=== PATIENT | female | born 1965 | race Caucasian/White ===

== ENCOUNTER 2020-11-24 15:00 | Outpatient (RCR) | payer BC, SELFPAY ==
--- NOTE | 2020-08-09 21:59 | HO.TMSDAILY2 ---
TMS Daily Progress Note Daily TMS Progress Note Date of Service: 08/09/20 Verification: I have reviewed the TMS Finishing Room Operator Note and agree with the contents. The patient remains a candidate to continue TMS treatment per protocol.
--- NOTE | 2020-09-12 07:51 | W.PM.TMSCONS ---
History of Present Illness General Data Date of Service: 08/22/20 Reason for consult: TMS EVAL Requesting provider: Trudy Mccauley History of Present Illness the patient is a 55-year-old female referred by Dr. 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 The patient reports ongoing depressed mood hopelessness helplessness despondency patient reports feeling down blue little interest in things with poor sleep prominent hopelessness helplessness and thoughts that she would be better off . She also suffers from severe constant anxiety and worry. She has had a very difficult time since the pandemic feeling isolated unable to cope difficulty with online engagement. Patient does see Ekle Vega at [facility] for psychotherapy. The patient has had a particularly difficult time since the of her son a helicopter crash in January of 2015 her current medications include citalopram 40 mg daily lamotrigine 200 mg bid BuSpar 25 mg bid Abilify 5mg a day the patient has felt increasingly despondent with thoughts that she would be better off denies plan or intent stating she can maintain her safety and would reach out if feeling that she could not Past Psychiatric History/Medication Trials: there is a history of partial hospital admissions and past p history of multiple trials including Paxil Effexor sertraline at therapeutic doses has not responded to antidepressantssychiatric hospitalizations starting in 1995 there is a history of overdose attempts and a history of overusing clonazepam.Pts has had serious suicide attempt requiring hospitatalization. Past trials of risperadol for augmentation rexulti 1 mg daily PMF Narrative: migraines carpal tunnel Family History: mother depression Social History: [place] children son age 31 masters degree [employer] education lives with her spouse Substance History: ? past overuse of klonapin Trauma History: of son Meds/Allergies Meds Narrative: see hpi Allergies Allergies Allergy/AdvReac Type Severity Reaction Status Date / Time No Known Allergies Allergy Unverified 04/07/20 16:33 [No Known Allergies*] Mental Status Exam Mental Status Exam Level of Consciousness: Awake Patient Behavior: Appropriate Mood Description: Calm, Depressed, Sad and Apprehensive Affect Description: Constricted, Depressed and Anxious Patient Cognition Impaired: No Ability to Follow Directions: Good Memory Description: Intact Hallucinations: None Delusions: Not Present Thought Content: positive for Obsessional Thoughts, positive for Goal Oriented, positive for Suicidal Ideation (passive si) and negative for Homicidal Ideation Depressive Symptoms: Increased Anxiety, Insomnia, Diff. Making Decisions, Feelings of Worthlessness, Feelings of Guilt, Thoughts of /Suicide and Difficulty Concentrating Judgement: Fair Assessment & Plan Assessment & Plan (1) Depression, major, severe recurrence: Status: Acute Code(s): F33.2 - Major depressive disorder, recurrent severe without psychotic features Recommendations: the patient is in the midst of a severe incapacitating depression case reviewed extensively with her outpatient psychiatrist Dr. Mccauley who recommends TMS patient has no medical contraindications no clear reported manic symptoms is a strong candidate for TMS treatment Greater than 50% of the session was spent on counseling and/or coordination of care
--- NOTE | 2020-09-21 20:57 | P.PNPS_ITS ---
TMS Daily Progress Note Daily TMS Progress Note Date of Service: 09/21/20 Week #: 1 Treatment #(08-20): 1 PHQ-9 Pre-Treatment (08-17): 21 PHQ-9 Most Recent (08-17): 21 Reviewed: TMS Tech Note Reviewed Verification: I have reviewed the TMS Exterior Door Installer Note and agree with the contents. The patient remains a candidate to continue TMS treatment per pro tocol.
--- NOTE | 2020-09-22 23:11 | P.PNPS_ITS ---
TMS Daily Progress Note Daily TMS Progress Note Date of Service: 09/22/20 Week #: 1 Treatment #(08-20): 2 PHQ-9 Pre-Treatment (08-17): 21 PHQ-9 Most Recent (08-17): 21 Reviewed: TMS Tech Note Reviewed Verification: I have reviewed the TMS Keymodule Assembly Machine Tender Note and agree with the contents. The patient remains a candidate to continue TMS treatment per pro tocol.
--- NOTE | 2020-09-23 22:30 | P.PNPS_ITS ---
TMS Daily Progress Note Daily TMS Progress Note Date of Service: 09/23/20 Week #: 1 Treatment #(08-20): 3 PHQ-9 Pre-Treatment (08-17): 21 PHQ-9 Most Recent (08-17): 21 Reviewed: TMS Tech Note Reviewed Verification: I have reviewed the TMS Supervisor Furnace Room Note and agree with the contents. The patient remains a candidate to continue TMS treatment per pro tocol.
--- NOTE | 2020-09-26 21:22 | HO.TMSDAILY2 ---
TMS Daily Progress Note Daily TMS Progress Note Date of Service: 09/26/20 Week #: 1 Treatment #(08-20): 4 PHQ-9 Pre-Treatment (08-17): 21 PHQ-9 Most Recent (08-17): 21 Reviewed: TMS Tech Note Reviewed Verification: I have reviewed the TMS Chemical Laboratory Technician Note and agree with the contents. The patient remains a candidate to continue TMS treatment per protocol.
--- NOTE | 2020-09-27 22:05 | HO.TMSDAILY2 ---
TMS Daily Progress Note Daily TMS Progress Note Date of Service: 09/27/20 Week #: 1 Treatment #(08-20): 5 PHQ-9 Pre-Treatment (08-17): 21 PHQ-9 Most Recent (08-17): 21 Reviewed: TMS Tech Note Reviewed Verification: I have reviewed the TMS Architectural Project Manager Note and agree with the contents. The patient remains a candidate to continue TMS treatment per protocol.
--- NOTE | 2020-09-28 22:29 | HO.TMSDAILY2 ---
TMS Daily Progress Note Daily TMS Progress Note Date of Service: 09/28/20 Week #: 2 Treatment #(08-20): 6 PHQ-9 Pre-Treatment (08-17): 21 PHQ-9 Most Recent (08-17): 21 Reviewed: TMS Tech Note Reviewed Verification: I have reviewed the TMS Skiver Machine Operator Note and agree with the contents. The patient remains a candidate to continue TMS treatment per protocol.
--- NOTE | 2020-09-29 22:31 | P.PNPS_ITS ---
TMS Daily Progress Note Daily TMS Progress Note Date of Service: 09/29/20 Week #: 2 Treatment #(08-20): 7 PHQ-9 Pre-Treatment (08-17): 21 PHQ-9 Most Recent (08-17): 21 Reviewed: TMS Tech Note Reviewed Verification: I have reviewed the TMS Safety Attendant Note and agree with the contents. The patient remains a candidate to continue TMS treatment per pro tocol.
--- NOTE | 2020-09-30 23:10 | HO.TMSDAILY2 ---
TMS Daily Progress Note Daily TMS Progress Note Date of Service: 09/30/20 Week #: 2 Treatment #(08-20): 8 PHQ-9 Pre-Treatment (08-17): 21 PHQ-9 Most Recent (08-17): 21 Reviewed: TMS Tech Note Reviewed Verification: I have reviewed the TMS Teacher Public Health Note and agree with the contents. The patient remains a candidate to continue TMS treatment per protocol.
--- NOTE | 2020-10-03 23:00 | HO.TMSDAILY2 ---
TMS Daily Progress Note Daily TMS Progress Note Date of Service: 10/03/20 Week #: 2 Treatment #(08-20): 8 PHQ-9 Pre-Treatment (08-17): 21 PHQ-9 Most Recent (08-17): 21 Reviewed: TMS Tech Note Reviewed Verification: I have reviewed the TMS Field Training Agent Note and agree with the contents. The patient remains a candidate to continue TMS treatment per protocol.
--- NOTE | 2020-10-04 23:13 | P.PNPS_ITS ---
TMS Daily Progress Note Daily TMS Progress Note Date of Service: 10/04/20 Week #: 2 Treatment #(08-20): 10 PHQ-9 Pre-Treatment (08-17): 21 PHQ-9 Most Recent (08-17): 21 Reviewed: TMS Tech Note Reviewed Verification: I have reviewed the TMS Stitch Bonding Machine Operator Note and agree with the contents. The patient remains a candidate to continue TMS treatment per pr otocol.
--- NOTE | 2020-10-05 22:44 | HO.TMSDAILY2 ---
TMS Daily Progress Note Daily TMS Progress Note Date of Service: 10/05/20 Week #: 3 Treatment #(08-20): 11 PHQ-9 Pre-Treatment (08-17): 21 PHQ-9 Most Recent (08-17): 21 Reviewed: TMS Tech Note Reviewed Verification: I have reviewed the TMS Tool And Die Designer Note and agree with the contents. The patient remains a candidate to continue TMS treatment per protocol.
--- NOTE | 2020-10-07 23:44 | HO.TMSDAILY2 ---
TMS Daily Progress Note Daily TMS Progress Note Date of Service: 10/07/20 Week #: 3 Treatment #(08-20): 12 PHQ-9 Pre-Treatment (08-17): 21 PHQ-9 Most Recent (08-17): 21 Reviewed: TMS Tech Note Reviewed Verification: I have reviewed the TMS Manager Speech Note and agree with the contents. The patient remains a candidate to continue TMS treatment per protocol.
--- NOTE | 2020-10-10 22:38 | P.PNPS_ITS ---
TMS Daily Progress Note Daily TMS Progress Note Date of Service: 10/10/20 Week #: 3 Treatment #(08-20): 13 PHQ-9 Pre-Treatment (08-17): 21 PHQ-9 Most Recent (08-17): 21 Reviewed: TMS Tech Note Reviewed Verification: I have reviewed the TMS Safe And Vault Service Mechanic Note and agree with the contents. The patient remains a candidate to continue TMS treatment per pr otocol.
--- NOTE | 2020-10-11 22:32 | HO.TMSDAILY2 ---
TMS Daily Progress Note Daily TMS Progress Note Date of Service: 10/11/20 Week #: 3 Treatment #(08-20): 14 PHQ-9 Pre-Treatment (08-17): 21 PHQ-9 Most Recent (08-17): 21 Reviewed: TMS Tech Note Reviewed Verification: I have reviewed the TMS Staff Pharmacist Note and agree with the contents. The patient remains a candidate to continue TMS treatment per protocol.
--- NOTE | 2020-10-13 22:14 | HO.TMSDAILY2 ---
TMS Daily Progress Note Daily TMS Progress Note Date of Service: 10/13/20 Week #: 3 Treatment #(08-20): 15 PHQ-9 Pre-Treatment (08-17): 21 PHQ-9 Most Recent (08-17): 21 Reviewed: TMS Tech Note Reviewed Verification: I have reviewed the TMS Warehouse Hand Note and agree with the contents. The patient remains a candidate to continue TMS treatment per protocol.
--- NOTE | 2020-10-13 22:15 | HO.TMSDAILY2 ---
TMS Daily Progress Note Daily TMS Progress Note Date of Service: 10/13/20 Week #: 4 Treatment #(08-20): 16 PHQ-9 Pre-Treatment (08-17): 21 PHQ-9 Most Recent (08-17): 21 Reviewed: TMS Tech Note Reviewed Verification: I have reviewed the TMS Service Advocate Contact Note and agree with the contents. The patient remains a candidate to continue TMS treatment per protocol.
--- NOTE | 2020-10-14 21:59 | P.PNPS_ITS ---
TMS Daily Progress Note Daily TMS Progress Note Date of Service: 10/14/20 Week #: 4 Treatment #(08-20): 17 PHQ-9 Pre-Treatment (08-17): 21 PHQ-9 Most Recent (08-17): 21 Reviewed: TMS Tech Note Reviewed Verification: I have reviewed the TMS Marine Equipment Preservation Inspector Note and agree with the contents. The patient remains a candidate to continue TMS treatment per pr otocol.
--- NOTE | 2020-10-17 22:45 | HO.TMSDAILY2 ---
TMS Daily Progress Note Daily TMS Progress Note Date of Service: 10/17/20 Week #: 4 Treatment #(08-20): 18 PHQ-9 Pre-Treatment (08-17): 21 PHQ-9 Most Recent (08-17): 21 Reviewed: TMS Tech Note Reviewed Verification: I have reviewed the TMS Mines Safety Engineer Note and agree with the contents. The patient remains a candidate to continue TMS treatment per protocol.
--- NOTE | 2020-10-20 21:19 | P.PNPS_ITS ---
TMS Daily Progress Note Daily TMS Progress Note Date of Service: 10/20/20 Week #: 4 Treatment #(08-20): 19 PHQ-9 Pre-Treatment (08-17): 21 PHQ-9 Most Recent (08-17): 21 Reviewed: TMS Tech Note Reviewed Verification: I have reviewed the TMS Risk Engineer Note and agree with the contents. The patient remains a candidate to continue TMS treatment per pr otocol.
--- NOTE | 2020-10-24 21:14 | HO.TMSDAILY2 ---
TMS Daily Progress Note Daily TMS Progress Note Date of Service: 10/24/20 Week #: 4 Treatment #(08-20): 20 PHQ-9 Pre-Treatment (08-17): 21 PHQ-9 Most Recent (08-17): 21 Reviewed: TMS Tech Note Reviewed Verification: I have reviewed the TMS Lead Care Manager Note and agree with the contents. The patient remains a candidate to continue TMS treatment per protocol.
--- NOTE | 2020-10-26 22:35 | HO.TMSDAILY2 ---
TMS Daily Progress Note Daily TMS Progress Note Date of Service: 10/26/20 Week #: 5 Treatment #(08-20): 21 PHQ-9 Pre-Treatment (08-17): 21 PHQ-9 Most Recent (08-17): 21 Reviewed: TMS Tech Note Reviewed Verification: I have reviewed the TMS Journeyman Molder Note and agree with the contents. The patient remains a candidate to continue TMS treatment per protocol.
--- NOTE | 2020-10-27 22:59 | P.PNPS_ITS ---
TMS Daily Progress Note Daily TMS Progress Note Date of Service: 10/27/20 Week #: 5 Treatment #(08-20): 22 PHQ-9 Pre-Treatment (08-17): 21 PHQ-9 Most Recent (08-17): 21 Reviewed: TMS Tech Note Reviewed Verification: I have reviewed the TMS Electrocardiogram Technician Note and agree with the contents. The patient remains a candidate to continue TMS treatment per pr otocol.
--- NOTE | 2020-10-28 10:05 | HO.TMSDAILY2 ---
TMS Daily Progress Note Daily TMS Progress Note Date of Service: 10/28/20 Week #: 5 Treatment #(08-20): 23 PHQ-9 Pre-Treatment (08-17): 21 PHQ-9 Most Recent (08-17): 21 Reviewed: TMS Tech Note Reviewed Verification: I have reviewed the TMS Director Of Ancillary Services Note and agree with the contents. The patient remains a candidate to continue TMS treatment per protocol.
--- NOTE | 2020-10-31 21:49 | P.PNPS_ITS ---
TMS Daily Progress Note Daily TMS Progress Note Date of Service: 10/31/20 Week #: 5 Treatment #(08-20): 24 PHQ-9 Pre-Treatment (08-17): 21 PHQ-9 Most Recent (08-17): 21 Reviewed: TMS Tech Note Reviewed Verification: I have reviewed the TMS Shipping Inspector Note and agree with the contents. The patient remains a candidate to continue TMS treatment per pr otocol.
--- NOTE | 2020-11-01 22:02 | HO.TMSDAILY2 ---
TMS Daily Progress Note Daily TMS Progress Note Date of Service: 11/01/20 Week #: 5 Treatment #(08-20): 25 PHQ-9 Pre-Treatment (08-17): 21 PHQ-9 Most Recent (08-17): 21 Reviewed: TMS Tech Note Reviewed Verification: I have reviewed the TMS Commodity Supervisor Note and agree with the contents. The patient remains a candidate to continue TMS treatment per protocol.
--- NOTE | 2020-11-02 22:48 | HO.TMSDAILY2 ---
TMS Daily Progress Note Daily TMS Progress Note Date of Service: 11/02/20 Week #: 6 Treatment #(08-20): 26 PHQ-9 Pre-Treatment (08-17): 21 PHQ-9 Most Recent (08-17): 21 Reviewed: TMS Tech Note Reviewed Verification: I have reviewed the TMS Furniture Assembler And Installer Note and agree with the contents. The patient remains a candidate to continue TMS treatment per protocol.
--- NOTE | 2020-11-03 21:51 | P.PNPS_ITS ---
TMS Daily Progress Note Daily TMS Progress Note Date of Service: 11/03/20 Week #: 6 Treatment #(08-20): 27 PHQ-9 Pre-Treatment (08-17): 21 PHQ-9 Most Recent (08-17): 21 Reviewed: TMS Tech Note Reviewed Verification: I have reviewed the TMS Sea Foam Kiss Maker Note and agree with the contents. The patient remains a candidate to continue TMS treatment per pr otocol.
--- NOTE | 2020-11-04 22:05 | HO.TMSDAILY2 ---
TMS Daily Progress Note Daily TMS Progress Note Date of Service: 11/04/20 Week #: 6 Treatment #(08-20): 28 PHQ-9 Pre-Treatment (08-17): 21 PHQ-9 Most Recent (08-17): 21 Reviewed: TMS Tech Note Reviewed Verification: I have reviewed the TMS Is Project Manager Note and agree with the contents. The patient remains a candidate to continue TMS treatment per protocol.
--- NOTE | 2020-11-08 15:33 | HO.TMSDAILY2 ---
TMS Daily Progress Note Daily TMS Progress Note Date of Service: 11/08/20 Week #: 6 Treatment #(08-20): 29 PHQ-9 Pre-Treatment (08-17): 21 PHQ-9 Most Recent (08-17): 7 Reviewed: TMS Tech Note Reviewed Verification: I have reviewed the TMS Electronic Engineering Draftsperson Note and agree with the contents. The patient remains a candidate to continue TMS treatment per protocol.
--- NOTE | 2020-11-09 23:02 | HO.TMSDAILY2 ---
TMS Daily Progress Note Daily TMS Progress Note Date of Service: 11/09/20 Week #: 6 Treatment #(08-20): 30 PHQ-9 Pre-Treatment (08-17): 21 PHQ-9 Most Recent (08-17): 7 Reviewed: TMS Tech Note Reviewed Verification: I have reviewed the TMS Mortgage Loan Coordinator Note and agree with the contents. The patient remains a candidate to continue TMS treatment per protocol.
--- NOTE | 2020-11-10 23:11 | HO.TMSDAILY2 ---
TMS Daily Progress Note Daily TMS Progress Note Date of Service: 11/10/20 Week #: 7 Treatment #(08-20): 31 PHQ-9 Pre-Treatment (08-17): 21 PHQ-9 Most Recent (08-17): 7 Reviewed: TMS Tech Note Reviewed Verification: I have reviewed the TMS Electric Organ Assembler And Checker Note and agree with the contents. The patient remains a candidate to continue TMS treatment per protocol.
--- NOTE | 2020-11-17 20:18 | HO.TMSDAILY2 ---
TMS Daily Progress Note Daily TMS Progress Note Date of Service: 11/17/20 Week #: 7 Treatment #(08-20): 33 PHQ-9 Pre-Treatment (08-17): 21 PHQ-9 Most Recent (08-17): 7 Reviewed: TMS Tech Note Reviewed Verification: I have reviewed the TMS Liquor Grinding Mill Operator Note and agree with the contents. The patient remains a candidate to continue TMS treatment per protocol.
--- NOTE | 2020-11-22 22:44 | HO.TMSDAILY2 ---
TMS Daily Progress Note Daily TMS Progress Note Date of Service: 11/22/20 Week #: 8 Treatment #(08-20): 34 PHQ-9 Pre-Treatment (08-17): 21 PHQ-9 Most Recent (08-17): 7 Reviewed: TMS Tech Note Reviewed Verification: I have reviewed the TMS Java Development Manager Note and agree with the contents. The patient remains a candidate to continue TMS treatment per protocol.
--- NOTE | 2020-11-23 21:20 | HO.TMSDAILY2 ---
TMS Daily Progress Note Daily TMS Progress Note Date of Service: 11/23/20 Week #: 8 Treatment #(08-20): 35 PHQ-9 Pre-Treatment (08-17): 21 PHQ-9 Most Recent (08-17): 7 Reviewed: TMS Tech Note Reviewed Verification: I have reviewed the TMS Laundry Operator Wash Room Note and agree with the contents. The patient remains a candidate to continue TMS treatment per protocol.
--- NOTE | 2020-11-24 21:29 | P.PNPS_ITS ---
TMS Daily Progress Note Daily TMS Progress Note Date of Service: 11/24/20 Week #: 8 Treatment #(08-20): 36 PHQ-9 Pre-Treatment (08-17): 21 PHQ-9 Most Recent (08-17): 7 Reviewed: TMS Tech Note Reviewed Verification: I have reviewed the TMS College Archivist Note and agree with the contents. The patient remains a candidate to continue TMS treatment per pro tocol.
== END 2020-11-24 16:00 | disposition home or self-care (01) ==
LOC: HO.PTMS 15:00
PROVIDERS: Visit Provider Psychiatry & Neurology Psychiatry
DX: F33.2 Major depressive disorder, recurrent severe without psychotic features (principal)
CPT/HCPCS: 90867; 90868

== ENCOUNTER 2020-12-23 06:12 | Outpatient (REF) | payer BC, SELFPAY ==
[2020-12-23 07:22] LABS: MANUAL DIFF FLAG NO
[2020-12-23 07:30] LABS: Basophils Absolute Auto 0.1 X10*3/uL (0.0-0.2); Basophils Percent Auto 0.7 % (0-2); Eosinophils Absolute Auto 0.2 X10*3/uL (0.0-0.4); Eosinophils Percent Auto 3.3 % (0-4); Hematocrit 37.5 % (37-47); Hemoglobin 12.2 g/dl (12.0-16.0); Imm Gran Abs Auto 0.02 X10*3/uL (0.00-0.03); Imm Gran Pct Auto 0.3 % (0.0-0.4); Lymphocytes Absolute Auto 2.7 X10*3/uL (1.2-4.9); Lymphocytes Percent Auto 37.3 % (20-40); Mean Corpuscular HGB Conc 32.5 g/dl (31.0-35.0); Mean Corpuscular Hemoglobin 29.5 pg (27.0-33.0); Mean Corpuscular Volume 90.6 fL (80-98); Mean Platelet Volume 9.9 fL (9.4-12.3); Monocytes Absolute Auto 0.5 X10*3/uL (0.1-1.2); Monocytes Percent Auto 7.5 % (2-11); Neutrophils Absolute Auto 3.7 X10*3/uL (2.0-8.3); Neutrophils Percent Auto 50.9 % (45-73); Platelet Count 263 X10*3/uL (160-400); Red Blood Count 4.14 X10*6/uL (4.20-5.50); Red Cell Distribution Width 11.9 % (11.0-16.0); White Blood Count 7.2 X10*3/uL (4.8-10.8)
[2020-12-23 07:43] LABS: Alanine Aminotransferase 14 U/L (0-31); Albumin Level 4.1 g/dL (3.5-5.0); Alkaline Phosphatase 66 U/L (39-117); Anion Gap 11 (12-20); Aspartate Amino Transferase 15 U/L (5-31); Bilirubin Total 0.8 mg/dL (0.0-1.0); Blood Urea Nitrogen 18 mg/dL (9-16); Calcium 9.1 mg/dL (8.4-10.2); Carbon Dioxide 28 mmol/L (22-29); Chloride 103 mmol/L (96-108); Cholesterol 183 mg/dL; Estimated Glomerular Filt Rate > 60; Glucose Fasting 90 mg/dL (60-99); HDL Cholesterol 65 mg/dL; LDL Cholesterol Calculated 108 mg/dl; Potassium 4.3 mmol/L (3.3-5.1); Sodium 138 mmol/L (135-145); Total Protein 6.9 g/dL (6.5-8.0); Triglycerides 54 mg/dL
== END 2020-12-23 06:13 | disposition home or self-care (01) ==
LOC: HO.LAB 06:12
PROVIDERS: PCP Internal Medicine; Visit Provider Internal Medicine
DX: Z00.00 Encounter for general adult medical examination without abnormal findings (principal); E11.9 Type 2 diabetes mellitus without complications; E03.9 Hypothyroidism, unspecified
CPT/HCPCS: 36415; 80053; 80061; 84443; 85025

== ENCOUNTER 2021-08-01 10:19 | Outpatient (REF) | payer BC, SELFPAY | END 2021-08-01 10:20 | disposition home or self-care (01) | LOC: HO.LAB 10:19 | PROVIDERS: PCP Internal Medicine; Visit Provider Internal Medicine | DX: Z13.89 Encounter for screening for other disorder (principal) ==

== ENCOUNTER 2021-08-08 06:01 | Outpatient (REF) | payer BC, SELFPAY ==
[2021-08-08 06:10] LABS: MANUAL DIFF FLAG NO
[2021-08-08 07:09] LABS: Basophils Absolute Auto 0.1 X10*3/uL (0.0-0.2); Basophils Percent Auto 0.6 % (0-2); Eosinophils Absolute Auto 0.3 X10*3/uL (0.0-0.4); Hematocrit 38.1 % (37.0-47.0); Hemoglobin 12.4 g/dl (12.0-16.0); Imm Gran Abs Auto 0.02 X10*3/uL (0.00-0.03); Imm Gran Pct Auto 0.2 % (0.0-0.4); Lymphocytes Absolute Auto 3.2 X10*3/uL (1.2-4.9); Lymphocytes Percent Auto 37.6 % (20-40); Mean Corpuscular HGB Conc 32.5 g/dl (31.0-35.0); Mean Corpuscular Hemoglobin 29.8 pg (27.0-33.0); Mean Corpuscular Volume 91.6 fL (80.0-98.0); Mean Platelet Volume 9.8 fL (9.4-12.3); Monocytes Absolute Auto 0.8 X10*3/uL (0.1-1.2); Monocytes Percent Auto 9.3 % (2-11); Neutrophils Absolute Auto 4.2 x10*3/uL (2.0-8.3); Neutrophils Percent Auto 49.3 % (45-73); Platelet Count 272 X10*3/uL (160-400); Red Blood Count 4.16 X10*6/uL (4.20-5.50); White Blood Count 8.5 X10*3/uL (4.8-10.8)
[2021-08-08 07:32] LABS: Alanine Aminotransferase 22 U/L (0-31); Albumin Level 4.1 g/dL (3.5-5.0); Alkaline Phosphatase 74 U/L (39-117); Anion Gap 11 (12-20); Aspartate Amino Transferase 20 U/L (5-31); Bilirubin Total 0.8 mg/dL (0.0-1.0); Blood Urea Nitrogen 16 mg/dL (9-16); Calcium 9.5 mg/dL (8.4-10.2); Carbon Dioxide 30 mmol/L (22-29); Chloride 103 mmol/L (96-108); Cholesterol 178 mg/dL; Estimated Glomerular Filt Rate > 60; Glucose Fasting 92 mg/dL (60-99); HDL Cholesterol 57 mg/dL; LDL Cholesterol Calculated 102 mg/dl; Potassium 4.2 mmol/L (3.3-5.1); Sodium 140 mmol/L (135-145); Total Protein 7.2 g/dL (6.5-8.0); Triglycerides 99 mg/dL
[2021-08-08 07:54] LABS: Thyroid Stimulating Hormone 2.73 uIU/mL (0.32-4.0)
== END 2021-08-08 06:02 | disposition home or self-care (01) ==
LOC: HO.LAB 06:01
PROVIDERS: PCP Internal Medicine; Visit Provider Internal Medicine
DX: Z00.00 Encounter for general adult medical examination without abnormal findings (principal); Z13.0 Encounter for screening for diseases of the blood and blood-forming organs and certain disorders involving the immune mechanism
CPT/HCPCS: 36415; 80053; 80061; 84443; 85025

== ENCOUNTER 2021-08-24 13:43 | Outpatient (REF) | payer BC, SELFPAY ==
--- NOTE | ~2021-08-24 | MM_ITS ---
EXAMINATION: MM SCREENING DIGITAL BREAST TOMOSYNTHESIS, BILATERAL CLINICAL INFORMATION: Screening. Asymptomatic. The lifetime risk of breast cancer based on the Tyrer-Cuzick Model is 6.3%. COMPARISON: Mammography: July 29, 2018 and studies of June 28, 2016 TECHNIQUE: Digital breast tomosynthesis is performed in both the craniocaudal and mediolateral oblique views along with computer-aided detection (CAD). Synthesized 2D images are generated from the tomosynthesis. FINDINGS: There are scattered areas of fibroglandular density (ACR BI-RADS breast composition Category b). There are no significant masses, abnormal calcifications, or other abnormalities. MM/MM tomosynthesis screening BI IMPRESSION: There are no significant changes from prior study. ASSESSMENT: BI-RADS 1: Negative RECOMMENDATION: Routine annual mammography screening. This patient's information was entered into a reminder system with a target due date for their next mammogram.
== END 2021-08-24 13:44 | disposition home or self-care (01) ==
LOC: HO.MAMMO 13:43
PROVIDERS: Visit Provider Internal Medicine
DX: Z12.31 Encounter for screening mammogram for malignant neoplasm of breast (principal)
CPT/HCPCS: 77063; 77067

== ENCOUNTER 2022-08-02 06:03 | Outpatient (REF) | payer OTHER, SELFPAY ==
[2022-08-02 06:09] LABS: MANUAL DIFF FLAG NO
[2022-08-02 07:38] LABS: Basophils Absolute Auto 0.1 X10*3/uL (0.0-0.2); Basophils Percent Auto 0.8 % (0-2); Eosinophils Absolute Auto 0.3 X10*3/uL (0.0-0.4); Eosinophils Percent Auto 4.1 % (0-4); Hematocrit 37.8 % (37.0-47.0); Hemoglobin 12.3 g/dl (12.0-16.0); Imm Gran Abs Auto 0.01 X10*3/uL (0.00-0.03); Imm Gran Pct Auto 0.1 % (0.0-0.4); Lymphocytes Absolute Auto 3.2 X10*3/uL (1.2-4.9); Lymphocytes Percent Auto 39.8 % (20-40); Mean Corpuscular HGB Conc 32.5 g/dl (31.0-35.0); Mean Corpuscular Volume 89.2 fL (80.0-98.0); Monocytes Absolute Auto 0.6 X10*3/uL (0.1-1.2); Monocytes Percent Auto 7.8 % (2-11); Neutrophils Absolute Auto 3.8 x10*3/uL (2.0-8.3); Neutrophils Percent Auto 47.4 % (45-73); Platelet Count 294 X10*3/uL (160-400); Red Blood Count 4.24 X10*6/uL (4.20-5.50); Red Cell Distribution Width 12.3 % (11.0-16.0)
[2022-08-02 08:35] LABS: Alanine Aminotransferase 17 U/L (0-31); Alkaline Phosphatase 84 U/L (39-117); Anion Gap 13 (12-20); Aspartate Amino Transferase 18 U/L (5-31); Bilirubin Total 0.6 mg/dL (0.0-1.0); Blood Urea Nitrogen 16 mg/dL (9-16); Calcium 9.1 mg/dL (8.4-10.2); Carbon Dioxide 27 mmol/L (22-29); Chloride 105 mmol/L (96-108); Cholesterol 171 mg/dL; Estimated Glomerular Filt Rate > 60; Glucose Fasting 90 mg/dL (60-99); HDL Cholesterol 50 mg/dL; LDL Cholesterol Calculated 100 mg/dl; Potassium 4.3 mmol/L (3.3-5.1); Sodium 141 mmol/L (135-145); Triglycerides 106 mg/dL
[2022-08-02 08:48] LABS: Thyroid Stimulating Hormone 6.34 uIU/mL (0.32-4.0)
== END 2022-08-02 06:04 | disposition home or self-care (01) ==
LOC: HO.LAB 06:03
PROVIDERS: PCP Internal Medicine; Visit Provider Internal Medicine
DX: E78.5 Hyperlipidemia, unspecified (principal); D64.9 Anemia, unspecified; E03.9 Hypothyroidism, unspecified; N28.9 Disorder of kidney and ureter, unspecified
CPT/HCPCS: 36415; 80053; 80061; 84443; 85025

== ENCOUNTER 2022-08-27 15:14 | Outpatient (REF) | payer OTHER, SELFPAY ==
--- NOTE | ~2022-08-27 | MM_ITS ---
EXAMINATION: MM SCREENING DIGITAL BREAST TOMOSYNTHESIS, BILATERAL CLINICAL INFORMATION: Screening. Asymptomatic. The lifetime risk of breast cancer based on the Tyrer-Cuzick Model is 6.0%. COMPARISON: Mammography: 08/24/2021 and studies dating back to 06/28/2016. TECHNIQUE: Digital breast tomosynthesis is performed in both the craniocaudal and mediolateral oblique views along with computer-aided detection (CAD). Synthesized 2D images are generated from the tomosynthesis. FINDINGS: There are scattered areas of fibroglandular density (ACR BI-RADS breast composition category B). There appears to be stable bilateral postsurgical change which may be due to bilateral reduction mammoplasty. No history mentions this. No new abnormal dominant mass or suspicious grouping of microcalcifications identified. There appear to be some scattered dystrophic calcifications. MM/MM tomosynthesis screening BI IMPRESSION: No significant changes from prior exam. ASSESSMENT: BI-RADS 2: Benign RECOMMENDATION: Routine annual mammography screening. This patient's information was entered into a reminder system with a target due date for their next mammogram.
== END 2022-08-27 15:15 | disposition home or self-care (01) ==
LOC: HO.MAMMO 15:14
PROVIDERS: Visit Provider Internal Medicine
DX: Z12.31 Encounter for screening mammogram for malignant neoplasm of breast (principal)
CPT/HCPCS: 77063; 77067

== ENCOUNTER 2022-09-10 15:47 | Emergency (ER) | payer OTHER, SELFPAY ==
--- NOTE | 2022-09-10 15:49 | ECG_ITS ---
Test Reason : cp Blood Pressure : / mmHG Vent. Rate : 191 BPM Atrial Rate : 000 BPM P-R Int : 000 ms QRS Dur : 076 ms QT Int : 248 ms P-R-T Axes : 000 011 193 degrees QTc Int : 442 ms Supraventricular tachycardia Nonspecific ST and T wave abnormality Abnormal ECG No previous ECGs available Referred By: Deondre Mccormack Electronically Signed By:CELINE SINGER
[2022-09-10 15:51] VITALS: BP 121/89; PULSE 203; RESP 18; TEMP 36.6; O2SAT 98; BMI 35.2
--- NOTE | 2022-09-10 15:51 | ED_ITS ---
HPI - Chest Pain General Chief Complaint: Chest Pain <ALESIA Ch - Last Filed: 09/10/22 15:57> Stated Complaint: chest pain <ALESIA Ch - Last Filed: 09/10/22 15:57> Time Seen by Provider: 09/10/22 15:58 <ALESIA Ch - Last Filed: 09/10/22 15:57> Source: patient <Deondre Mccormack MD - Last Filed: 09/10/22 18:41> Mode of arrival: ambulatory <Deondre Mccormack MD - Last Filed: 09/10/22 18:41> Limitations: no limitations <Deondre Mccormack MD - Last Filed: 09/10/22 18:41> History of Present Illness HPI narrative: At 2:30pm today patient had severe heavy chest pain with shortness of breath, her smart watch said that she was running at 190 pulse. <Deondre Mccormack MD - Last Filed: 09/10/22 18:41> MD complaint: chest heaviness <Deondre Mccormack MD - Last Filed: 09/10/22 18:41> Onset (ago): hour(s) (1.5 hours prior) <Deondre Mccormack MD - Last Filed: 09/10/22 18:41> Timing of current episode: constant <Deondre Mccormack MD - Last Filed: 09/10/22 18:41> Onset: during rest <Deondre Mccormack MD - Last Filed: 09/10/22 18:41> Pain location: substernal <Deondre Mccormack MD - Last Filed: 09/10/22 18:41> Severity: mild <Deondre Mccormack MD - Last Filed: 09/10/22 18:41> Quality: tightness <Deondre Mccormack MD - Last Filed: 09/10/22 18:41> Risk Factors Coronary artery disease risk factors: none <Deondre Mccormack MD - Last Filed: 09/10/22 18:41> Related Data Home Medications: Home Medications Medication Instructions Recorded Confirmed buspirone 10 mg tablet 20 mg PO BID 12/21/20 07/30/22 buspirone 5 mg tablet 5 mg PO BID 12/21/20 07/30/22 lamotrigine 200 mg tablet 200 mg PO BID 12/21/20 07/30/22 trazodone 100 mg tablet 100 mg PO BEDTIME PRN 12/21/20 07/30/22 ascorbate calcium (vitamin C) 500 500 mg PO DAILY 06/08/21 07/30/22 mg tablet multivitamin (Daily Multi-Vitamin 1 tab PO DAILY 06/08/21 07/30/22 tablet) aripiprazole 2 mg tablet 2 mg PO DAILY 11/14/21 07/30/22 citalopram 20 mg tablet 20 mg PO DAILY 11/14/21 07/30/22 clonazepam 0.5 mg tablet 0.5 mg PO BID PRN 11/14/21 07/30/22 Previous Rx's Medication Instructions Recorded eletriptan 40 mg tablet 40 mg PO .Once a day #90 tabs 07/25/21 methylprednisolone 4 mg tablets in See Rx Instructions PO PER PKG DIR 07/30/22 a dose pack (Medrol ([place])) #21 ea metoprolol succinate 50 mg 50 mg PO DAILY #30 tabs 09/10/22 tablet,extended release 24 hr <ALESIA Ch - Last Filed: 09/10/22 15:57> Allergies/Adverse Reactions: Allergies Allergy/AdvReac Type Severity Reaction Status Date / Time No Known Allergies Allergy Verified 07/30/22 14:21 [No Known Allergies*] <ALESIA Ch - Last Filed: 09/10/22 15:57> Review of Systems Review of Systems: Yes all other systems are reviewed and are negative <Deondre Mccormack MD - Last Filed: 09/10/22 18:41> Cardiovascular: Cardiovascular: Reports chest pain <Deondre Mccormack MD - Last Filed: 09/10/22 18:41> Neurologic: Denies Sensory deficit (Neuro) <Deondre Mccormack MD - Last Filed: 09/10/22 18:41> [facility] Past Medical History Medical History: Medical History Migraine headache Vocal cord granuloma <ALESIA Ch - Last Filed: 09/10/22 15:57> Surgical History: Surgical History H/O section History of bilateral cataract extraction Hx of tonsillectomy <ALESIA Ch - Last Filed: 09/10/22 15:57> Family History Family History: Family History Mother No problems noted. Father No problems noted. Other Mental health disorder Substance use disorder <ALESIA Ch - Last Filed: 09/10/22 15:57> Social History Social History: Social History Housing: House Alcohol intake: current Alcohol intake frequency: a few times a week Alcohol type: wine Patient Tobacco Use Status: Never used Tobacco Smoked in Last 30 Days: No e-Cigarette/Vaping Use: Never Used Second Hand Smoke Exposure: No Use of substances other than those prescribed or required for medical reasons: No Advance Directives: No Advance Directives Information Provided: No service: No Current occupational status: employed Current occupation: Peer professional Cognitive needs: No Hearing needs: No Vision needs: Yes (Glasses) <ALESIA Ch - Last Filed: 09/10/22 15:57> Physical Exam Vital Signs: Vital Signs: Last Vital Signs Temp 97.9 F 09/10/22 15:51 Pulse 99 09/10/22 18:03 Resp 20 09/10/22 18:03 BP 128/83 09/10/22 18:03 Pulse Ox 99 09/10/22 18:03 O2 Del Method 09/10/22 18:03 BMI result Body Mass Index 35.2 <ALESIA Ch - Last Filed: 09/10/22 15:57> Vital Signs: Last Vital Signs Temp 97.9 F 09/10/22 15:51 Pulse 99 09/10/22 18:03 Resp 20 09/10/22 18:03 BP 128/83 09/10/22 18:03 Pulse Ox 99 09/10/22 18:03 O2 Del Method 09/10/22 18:03 BMI result Body Mass Index 35.2 <Deondre Mccormack MD - Last Filed: 09/10/22 18:41> Const: General: healthy appearing <Deondre Mccormack MD - Last Filed: 09/10/22 18:41> Nutritional Appearance: average body habitus <Deondre Mccormack MD - Last Filed: 09/10/22 18:41> Orientation/consciousness: oriented to person and patient oriented x3 <Deondre Mccormack MD - Last Filed: 09/10/22 18:41> Limitations: no limitations <Deondre Mccormack MD - Last Filed: 09/10/22 18:41> HEENT: Head: Yes normal to inspection <Deondre Mccormack MD - Last Filed: 09/10/22 18:41> Ears: external ears normal <Deondre Mccormack MD - Last Filed: 09/10/22 18:41> General nose exam: Normal external nose present <Deondre Mccormack MD - Last Filed: 09/10/22 18:41> Mouth: Normal oral and palatal mucosa present and oropharynx normal <Deondre Mccormack MD - Last Filed: 09/10/22 18:41> Throat: Yes posterior oropharynx normal <Deondre Mccormack MD - Last Filed: 09/10/22 18:41> Eyes: General: appearance normal, both eyes and all related structures <Deondre Mccormack MD - Last Filed: 09/10/22 18:41> Neck: Other: supple <Deodnre Mccormack MD - Last Filed: 09/10/22 18:41> Neck: Yes normal visual inspection <Deondre Mccormack MD - Last Filed: 09/10/22 18:41> Chest: Chest palpation & inspection: normal inspection of the chest <Deondre Mccormack MD - Last Filed: 09/10/22 18:41> Resp: Auscultation: clear to auscultation bilaterally <Deondre Mccormack MD - Last Filed: 09/10/22 18:41> Cardio: Jugular venous distension: no JVD <Deondre Mccormack MD - Last Filed: 09/10/22 18:41> Rate: regular rate <Deondre Mccormack MD - Last Filed: 09/10/22 18:41> Rhythm: regular rhythm <Deondre Mccormack MD - Last Filed: 09/10/22 18:41> Heart sounds: S1 normal heart sound present and S2 normal heart sound present <Deondre Mccormack MD - Last Filed: 09/10/22 18:41> GI: Inspection: Yes normal to inspection <Deondre Mccormack MD - Last Filed: 09/10/22 18:41> Palpation (GI): Soft to palpation, nontender and No hepatosplenomegaly present <Deondre Mccormack MD - Last Filed: 09/10/22 18:41> Auscultation: normal bowel sounds <Deondre Mccormack MD - Last Filed: 09/10/22 18:41> : General: Yes no CVA tenderness <Deondre Mccormack MD - Last Filed: 09/10/22 18:41> Back/Spine/Pelvis: Back: no CVA tenderness <Deondre Mccormack MD - Last Filed: 09/10/22 18:41> Skin: General skin exam: no rashes or lesions noted <eDondre Mccormack MD - Last Filed: 09/10/22 18:41> Neuro: General: oriented to person and patient oriented x3 <Deondre Mccormack MD - Last Filed: 09/10/22 18:41> Cranial nerves: Yes CN's II-XII intact bilaterally <Deondre Mccormack MD - Last Filed: 09/10/22 18:41> Motor exam (neuro): 5/5 motor strength present throughout <Deondre Mccormack MD - Last Filed: 09/10/22 18:41> Sensory Exam: No Sensory deficit (Neuro) <Deondre Mccormack MD - Last Filed: 09/10/22 18:41> Extrem: General: Yes normal to inspection <Deondre Mccormack MD - Last Filed: 09/10/22 18:41> Psych: Appearance: grossly normal <Deondre Mccormack MD - Last Filed: 09/10/22 18:41> Course Course Course Narrative: RME - 57 y/o female with history of anxiety/depression presents to the ER for evaluation of constant, 8/10 central chest pain that radiates up into her neck that started at 2:30pm today while drinking coffee. Has history of chest pain associated with anxiety but not to this degree. Took her Klonopin to see if it would help but it didn't. She reports pain with deep breaths. HR 205 in triage. BP 121/89. No improvement with valsalva. Patient right back to treatment room. <ALESIA Ch - Last Filed: 09/10/22 15:57> Reevaluation(s) Reevaluation #1: patient now with heart rate of 160 will repeat EKG <Deondre Mccormack MD - Last Filed: 09/10/22 18:41> Time: 17:43 <Deondre Mccormack MD - Last Filed: 09/10/22 18:41> Medications Administered Discontinued Medications Generic Name Dose Route Start Last Admin Trade Name Freq PRN Reason Stop Dose Admin Adenosine 6 mg 09/10/22 16:04 09/10/22 16:23 Adenosine 6 Mg/2 Ml Vial IVPUSH 09/10/22 16:05 6 mg STAT STA Administration Adenosine 6 mg 09/10/22 17:50 09/10/22 17:59 Adenosine 6 Mg/2 Ml Vial IVPUSH 09/10/22 17:51 6 mg ONCE ONE Administration Metoprolol Tartrate 5 mg 09/10/22 16:12 09/10/22 16:23 Metoprolol Tartrate 5 Mg/5 Ml Vial IVPUSH 09/10/22 16:13 5 mg ONCE ONE Administration Metoprolol Tartrate 5 mg 09/10/22 17:50 09/10/22 18:07 Metoprolol Tartrate 5 Mg/5 Ml Vial IVPUSH 09/10/22 17:51 5 mg ONCE ONE Administration <ALESIA Ch - Last Filed: 09/10/22 15:57> Medications Administered Discontinued Medications Generic Name Dose Route Start Last Admin Trade Name Freq PRN Reason Stop Dose Admin Adenosine 6 mg 09/10/22 16:04 09/10/22 16:23 Adenosine 6 Mg/2 Ml Vial IVPUSH 09/10/22 16:05 6 mg STAT STA Administration Adenosine 6 mg 09/10/22 17:50 09/10/22 17:59 Adenosine 6 Mg/2 Ml Vial IVPUSH 09/10/22 17:51 6 mg ONCE ONE Administration Metoprolol Tartrate 5 mg 09/10/22 16:12 09/10/22 16:23 Metoprolol Tartrate 5 Mg/5 Ml Vial IVPUSH 09/10/22 16:13 5 mg ONCE ONE Administration Metoprolol Tartrate 5 mg 09/10/22 17:50 09/10/22 18:07 Metoprolol Tartrate 5 Mg/5 Ml Vial IVPUSH 09/10/22 17:51 5 mg ONCE ONE Administration <Deondre Mccormack MD - Last Filed: 09/10/22 18:41> Medical Decision Making Differential Diagnosis Differential Diagnoses: The differential diagnosis associated with the presentation includes (SVT, AFib, Atrial flutter) <Deondre Mccormack MD - Last Filed: 09/10/22 18:41> Admission/Observation Consideration of admission/observation: Escalation of care including admission/observation considered (in a 57 yo with SVT and chest pain admission was considered at the onset) <Deondre Mccormack MD - Last Filed: 09/10/22 18:41> Lab Data Result Diagrams: 09/10/22 16:53 09/10/22 16:53 <ALESIA Ch - Last Filed: 09/10/22 15:57> Labs: Lab Results 09/10/22 09/10/22 09/10/22 Range/Units 16:53 16:53 16:53 WBC 8.9 (4.8-10.8) X10*3/uL RBC 4.17 L (4.20-5.50) X10*6/uL Hgb 12.3 (12.0-16.0) g/dl Hct 37.1 (37.0-47.0) % MCV 89.0 (80.0-98.0) fL MCH 29.5 (27.0-33.0) pg MCHC 33.2 (31.0-35.0) g/dl RDW 12.4 (11.0-16.0) % Plt Count 293 (160-400) X10*3/uL MPV 9.5 (9.4-12.3) fL Immature Gran % (Auto) 0.2 (0.0-0.4) % Neut % (Auto) 48.2 (45-73) % Lymph % (Auto) 40.1 H (20-40) % [place] % (Auto) 7.5 (2-11) % Eos % (Auto) 3.4 (0-4) % Baso % (Auto) 0.6 (0-2) % Lymph # (Auto) 3.6 (1.2-4.9) X10*3/uL [place] # (Auto) 0.7 (0.1-1.2) X10*3/uL Eos # (Auto) 0.3 (0.0-0.4) X10*3/uL Baso # (Auto) 0.1 (0.0-0.2) X10*3/uL Abs Immat Gran (auto) 0.02 (0.00-0.03) X10*3/uL Absolute Neuts (auto) 4.3 (2.0-8.3) x10*3/uL Absolute Nucleated RBC 0.000 (0.0-0.012) X10*3/uL Nucleated RBC % (auto) 0.0 (0.0-0.2) /100WBC PT (10.0-13.1) SEC INR (0.9-1.1) APTT (26.0-36.4) SEC Sodium 144 (135-145) mmol/L Potassium 4.0 (3.3-5.1) mmol/L Chloride 110 H (96-108) mmol/L Carbon Dioxide 27 (22-29) mmol/L Anion Gap 11 L (12-20) BUN 15 (9-16) mg/dL Creatinine 0.91 (0.5-1.4) mg/dL Estim Creat Clear Calc 68.2 Estimated GFR > 60 Random Glucose 111 (60-115) mg/dL Calcium 8.7 (8.4-10.2) mg/dL Magnesium 2.0 (1.6-2.6) mg/dL Total Bilirubin 0.4 (0.0-1.0) mg/dL Direct Bilirubin < 0.2 (0.0-0.5) mg/dL AST 17 (5-31) U/L ALT 22 (0-31) U/L Alkaline Phosphatase 71 (39-117) U/L Troponin I High Sens 6.6 (<3.5-17.0) ng/L Total Protein 6.2 L (6.5-8.0) g/dL Albumin 3.6 (3.5-5.0) g/dL TSH (0.32-4.0) uIU/mL 09/10/22 09/10/22 Range/Units 16:53 16:53 WBC (4.8-10.8) X10*3/uL RBC (4.20-5.50) X10*6/uL Hgb (12.0-16.0) g/dl Hct (37.0-47.0) % MCV (80.0-98.0) fL MCH (27.0-33.0) pg MCHC (31.0-35.0) g/dl RDW (11.0-16.0) % Plt Count (160-400) X10*3/uL MPV (9.4-12.3) fL Immature Gran % (Auto) (0.0-0.4) % Neut % (Auto) (45-73) % Lymph % (Auto) (20-40) % [place] % (Auto) (2-11) % Eos % (Auto) (0-4) % Baso % (Auto) (0-2) % Lymph # (Auto) (1.2-4.9) X10*3/uL [place] # (Auto) (0.1-1.2) X10*3/uL Eos # (Auto) (0.0-0.4) X10*3/uL Baso # (Auto) (0.0-0.2) X10*3/uL Abs Immat Gran (auto) (0.00-0.03) X10*3/uL Absolute Neuts (auto) (2.0-8.3) x10*3/uL Absolute Nucleated RBC (0.0-0.012) X10*3/uL Nucleated RBC % (auto) (0.0-0.2) /100WBC PT 10.4 (10.0-13.1) SEC INR 0.9 (0.9-1.1) APTT 34.2 (26.0-36.4) SEC Sodium (135-145) mmol/L Potassium (3.3-5.1) mmol/L Chloride (96-108) mmol/L Carbon Dioxide (22-29) mmol/L Anion Gap (12-20) BUN (9-16) mg/dL Creatinine (0.5-1.4) mg/dL Estim Creat Clear Calc Estimated GFR Random Glucose (60-115) mg/dL Calcium (8.4-10.2) mg/dL Magnesium (1.6-2.6) mg/dL Total Bilirubin (0.0-1.0) mg/dL Direct Bilirubin (0.0-0.5) mg/dL AST (5-31) U/L ALT (0-31) U/L Alkaline Phosphatase (39-117) U/L Troponin I High Sens (<3.5-17.0) ng/L Total Protein (6.5-8.0) g/dL Albumin (3.5-5.0) g/dL TSH 3.10 (0.32-4.0) uIU/mL <ALESIA Ch - Last Filed: 09/10/22 15:57> Lab Results 09/10/22 09/10/22 09/10/22 Range/Units 16:53 16:53 16:53 WBC 8.9 (4.8-10.8) X10*3/uL RBC 4.17 L (4.20-5.50) X10*6/uL Hgb 12.3 (12.0-16.0) g/dl Hct 37.1 (37.0-47.0) % MCV 89.0 (80.0-98.0) fL MCH 29.5 (27.0-33.0) pg MCHC 33.2 (31.0-35.0) g/dl RDW 12.4 (11.0-16.0) % Plt Count 293 (160-400) X10*3/uL MPV 9.5 (9.4-12.3) fL Immature Gran % (Auto) 0.2 (0.0-0.4) % Neut % (Auto) 48.2 (45-73) % Lymph % (Auto) 40.1 H (20-40) % [place] % (Auto) 7.5 (2-11) % Eos % (Auto) 3.4 (0-4) % Baso % (Auto) 0.6 (0-2) % Lymph # (Auto) 3.6 (1.2-4.9) X10*3/uL [place] # (Auto) 0.7 (0.1-1.2) X10*3/uL Eos # (Auto) 0.3 (0.0-0.4) X10*3/uL Baso # (Auto) 0.1 (0.0-0.2) X10*3/uL Abs Immat Gran (auto) 0.02 (0.00-0.03) X10*3/uL Absolute Neuts (auto) 4.3 (2.0-8.3) x10*3/uL Absolute Nucleated RBC 0.000 (0.0-0.012) X10*3/uL Nucleated RBC % (auto) 0.0 (0.0-0.2) /100WBC PT (10.0-13.1) SEC INR (0.9-1.1) APTT (26.0-36.4) SEC Sodium 144 (135-145) mmol/L Potassium 4.0 (3.3-5.1) mmol/L Chloride 110 H (96-108) mmol/L Carbon Dioxide 27 (22-29) mmol/L Anion Gap 11 L (12-20) BUN 15 (9-16) mg/dL Creatinine 0.91 (0.5-1.4) mg/dL Estim Creat Clear Calc 68.2 Estimated GFR > 60 Random Glucose 111 (60-115) mg/dL Calcium 8.7 (8.4-10.2) mg/dL Magnesium 2.0 (1.6-2.6) mg/dL Total Bilirubin 0.4 (0.0-1.0) mg/dL Direct Bilirubin < 0.2 (0.0-0.5) mg/dL AST 17 (5-31) U/L ALT 22 (0-31) U/L Alkaline Phosphatase 71 (39-117) U/L Troponin I High Sens 6.6 (<3.5-17.0) ng/L Total Protein 6.2 L (6.5-8.0) g/dL Albumin 3.6 (3.5-5.0) g/dL TSH (0.32-4.0) uIU/mL 09/10/22 09/10/22 Range/Units 16:53 16:53 WBC (4.8-10.8) X10*3/uL RBC (4.20-5.50) X10*6/uL Hgb (12.0-16.0) g/dl Hct (37.0-47.0) % MCV (80.0-98.0) fL MCH (27.0-33.0) pg MCHC (31.0-35.0) g/dl RDW (11.0-16.0) % Plt Count (160-400) X10*3/uL MPV (9.4-12.3) fL Immature Gran % (Auto) (0.0-0.4) % Neut % (Auto) (45-73) % Lymph % (Auto) (20-40) % [place] % (Auto) (2-11) % Eos % (Auto) (0-4) % Baso % (Auto) (0-2) % Lymph # (Auto) (1.2-4.9) X10*3/uL [place] # (Auto) (0.1-1.2) X10*3/uL Eos # (Auto) (0.0-0.4) X10*3/uL Baso # (Auto) (0.0-0.2) X10*3/uL Abs Immat Gran (auto) (0.00-0.03) X10*3/uL Absolute Neuts (auto) (2.0-8.3) x10*3/uL Absolute Nucleated RBC (0.0-0.012) X10*3/uL Nucleated RBC % (auto) (0.0-0.2) /100WBC PT 10.4 (10.0-13.1) SEC INR 0.9 (0.9-1.1) APTT 34.2 (26.0-36.4) SEC Sodium (135-145) mmol/L Potassium (3.3-5.1) mmol/L Chloride (96-108) mmol/L Carbon Dioxide (22-29) mmol/L Anion Gap (12-20) BUN (9-16) mg/dL Creatinine (0.5-1.4) mg/dL Estim Creat Clear Calc Estimated GFR Random Glucose (60-115) mg/dL Calcium (8.4-10.2) mg/dL Magnesium (1.6-2.6) mg/dL Total Bilirubin (0.0-1.0) mg/dL Direct Bilirubin (0.0-0.5) mg/dL AST (5-31) U/L ALT (0-31) U/L Alkaline Phosphatase (39-117) U/L Troponin I High Sens (<3.5-17.0) ng/L Total Protein (6.5-8.0) g/dL Albumin (3.5-5.0) g/dL TSH 3.10 (0.32-4.0) uIU/mL <Deondre Mccormack MD - Last Filed: 09/10/22 18:41> Independent Interpretation I performed an independent interpretation of an: EKG (#1 SVT at rate of 190, #[address] or twave changes) <Deondre Mccormack MD - Last Filed: 09/10/22 18:41> Independent Historian Clinical information obtained from an independent historian. History obtained from or confirmed by: Spouse <Deondre Mccormack MD - Last Filed: 09/10/22 18:41> Discharge Plan Discharge Clinical Impression: Supraventricular tachycardia <ALESIA Ch - Last Filed: 09/10/22 15:57> Patient Disposition: Home, Self-Care <ALESIA Ch - Last Filed: 09/10/22 15:57> Instructions: Supraventricular Tachycardia (ED) <ALESIA Ch - Last Filed: 09/10/22 15:57> Prescriptions: New metoprolol succinate 50 mg tablet extended release 24 hr 50 mg PO DAILY Qty: 30 0RF No Action lamotrigine 200 mg tablet 200 mg PO BID trazodone 100 mg tablet 100 mg PO BEDTIME PRN buspirone 10 mg tablet 20 mg PO BID buspirone 5 mg tablet 5 mg PO BID multivitamin [Daily Multi-Vitamin] Tablet 1 tab PO DAILY ascorbate calcium (vitamin C) 500 mg tablet 500 mg PO DAILY eletriptan 40 mg tablet 40 mg PO .Once a day Qty: 90 3RF methylprednisolone [Medrol ([place])] 4 mg tablets,dose pack See Rx Instructions PO PER PKG DIR Qty: 21 0RF Rx Instructions: PO PER PKG DIR citalopram 20 mg tablet 20 mg PO DAILY aripiprazole 2 mg tablet 2 mg PO DAILY clonazepam 0.5 mg tablet 0.5 mg PO BID PRN <ALESIA Ch - Last Filed: 09/10/22 15:57> Referrals: Shar Walker MD [Primary Care Provider] - Rah Gaitan MD [Physician] - 3 days <ALESIA Ch - Last Filed: 09/10/22 15:57>
[2022-09-10 16:17] VITALS: BP 135/93; PULSE 106; RESP 17; O2SAT 97
--- NOTE | 2022-09-10 16:17 | ECG_ITS ---
Test Reason : post cardioversion Blood Pressure : / mmHG Vent. Rate : 096 BPM Atrial Rate : 096 BPM P-R Int : 144 ms QRS Dur : 072 ms QT Int : 348 ms P-R-T Axes : 054 013 009 degrees QTc Int : 439 ms Normal sinus rhythm cannot exclude old Septal infarct , age undetermined , could also be from body habitus and lead placement Abnormal ECG When compared to the previous EKG of same day, rhythm change. Referred By: Deondre Mccormack Electronically Signed By:CELINE SINGER
[2022-09-10] MEDS: Metoprolol Tartrate 5 MG/5 ML VIAL IVPUSH ×2 (16:23→18:07)
[2022-09-10] MEDS: Adenosine 6 MG/2 ML VIAL IVPUSH ×2 (16:23→17:59)
[2022-09-10 16:28] VITALS: BP 116/62; PULSE 94; RESP 14; O2SAT 99
[2022-09-10 16:56] LABS: MANUAL DIFF FLAG NO
[2022-09-10 17:04] LABS: Basophils Absolute Auto 0.1 X10*3/uL (0.0-0.2); Basophils Percent Auto 0.6 % (0-2); Eosinophils Absolute Auto 0.3 X10*3/uL (0.0-0.4); Eosinophils Percent Auto 3.4 % (0-4); Hematocrit 37.1 % (37.0-47.0); Hemoglobin 12.3 g/dl (12.0-16.0); Imm Gran Abs Auto 0.02 X10*3/uL (0.00-0.03); Imm Gran Pct Auto 0.2 % (0.0-0.4); Lymphocytes Absolute Auto 3.6 X10*3/uL (1.2-4.9); Lymphocytes Percent Auto 40.1 % (20-40); Mean Corpuscular HGB Conc 33.2 g/dl (31.0-35.0); Mean Corpuscular Hemoglobin 29.5 pg (27.0-33.0); Mean Platelet Volume 9.5 fL (9.4-12.3); Monocytes Absolute Auto 0.7 X10*3/uL (0.1-1.2); Monocytes Percent Auto 7.5 % (2-11); Neutrophils Absolute Auto 4.3 x10*3/uL (2.0-8.3); Neutrophils Percent Auto 48.2 % (45-73); Platelet Count 293 X10*3/uL (160-400); Red Blood Count 4.17 X10*6/uL (4.20-5.50); Red Cell Distribution Width 12.4 % (11.0-16.0); White Blood Count 8.9 X10*3/uL (4.8-10.8)
[2022-09-10 17:05] LABS: INTERNATIONAL NORM RATIO 0.9 (0.9-1.1); Prothrombin Time 10.4 SEC (10.0-13.1)
[2022-09-10 17:08] LABS: Partial Thromboplastin Time 34.2 SEC (26.0-36.4)
[2022-09-10 17:22] LABS: Alanine Aminotransferase 22 U/L (0-31); Albumin Level 3.6 g/dL (3.5-5.0); Alkaline Phosphatase 71 U/L (39-117); Anion Gap 11 (12-20); Aspartate Amino Transferase 17 U/L (5-31); Bilirubin Direct < 0.2 mg/dL (0.0-0.5); Bilirubin Total 0.4 mg/dL (0.0-1.0); Blood Urea Nitrogen 15 mg/dL (9-16); Calcium 8.7 mg/dL (8.4-10.2); Carbon Dioxide 27 mmol/L (22-29); Chloride 110 mmol/L (96-108); Creatinine Clr Calc Pharmacy 68.2; Estimated Glomerular Filt Rate > 60; Glucose Random 111 mg/dL (60-115); Sodium 144 mmol/L (135-145); Total Protein 6.2 g/dL (6.5-8.0)
[2022-09-10 17:29] LABS: Troponin-I High Sensitivity 6.6 ng/L (<3.5-17.0)
[2022-09-10 18:03] VITALS: BP 128/83; PULSE 99; RESP 20; O2SAT 99
[2022-09-10 18:59] VITALS: BP 121/77; PULSE 96; RESP 11; TEMP 36.8; O2SAT 100
[2022-09-10] MEDS: Metoprolol Tartrate 50 MG TABLET PO (20:11)
[2022-09-10 20:16] VITALS: BP 132/74; PULSE 88; RESP 16; O2SAT 99
--- NOTE | 2022-09-10 20:17 | PC.NURSE ---
Discharged at this time. Prior to DC pt ambulated to and from bathroom without difficulty and without change in her HR or symptoms similar to those that prompted her to come to the ER. She verbalized an understanding of all DC orders and she ambulated out of the department independently and with steady gait.
== END 2022-09-10 20:20 | disposition home or self-care (01) ==
PROVIDERS: Physician Assistant; Emergency Provider Emergency Medicine; PCP Internal Medicine
DX: I47.1 Supraventricular tachycardia (principal); R07.89 Other chest pain; Z79.899 Other long term (current) drug therapy
CPT/HCPCS: 36415; 80048; 80076; 83735; 84443; 84484; 85025; 85610; 85730; 93005; 96374; 96375; 96376; 99284; 99285; J0153

== ENCOUNTER → 2022-09-13 12:43 | Outpatient (BNVA) | payer OTHER, SELFPAY | PROVIDERS: PCP Internal Medicine; Visit Provider Internal Medicine | DX: Z13.89 Encounter for screening for other disorder (principal) ==

== ENCOUNTER → 2022-09-17 14:53 | Outpatient (REF) | payer OTHER, SELFPAY ==
--- NOTE | 2022-09-17 14:56 | CA_ITS ---
Transthoracic Echocardiogram Patient (Last, First, Middle): Jose Cabello P Gender: Female Date of : 1965 Age: 57 Procedure Date: 09/17/2022 Procedure Type: Transthoracic Echocardiogram Location: OP Height: 157.48 cm Weight: 85.28 kg BSA: 1.86 m2 Heart Rate: bpm BP: 138 / 86 mmHg Store Receiving Specialist: JAYLYN Referring MD: Rah Gaitan MD Kitchen Bath Designer: Theron Li MD Symptoms: I47.1 - Supraventricular tachycardia Study Quality: Adequate ECG Rhythm: Sinus Conclusions: - 1. Normal LV systolic and diastolic function 2. Mild aortic regurgitation 3. Normal RV systolic pressure 4. No gross pericardial effusion Findings Left Ventricle Normal left ventricular size, thickness, and systolic function. The visually estimated ejection fraction is between 60-65%. Spectral Doppler is indicative of a normal filling pattern. Peak GLS is -19.7%, within normal limits. Right Ventricle Normal right ventricular cavity size and systolic function. Atria Both atria are normal in size. There is no evidence of interatrial shunt. Aortic Valve Normal aortic valve structure and function. There is no aortic valve stenosis. There is mild aortic valve regurgitation. Mitral Valve There is mild anterior and posterior mitral leaflet thickening. There is trace mitral valve regurgitation. There is no mitral valve stenosis. Pulmonic Valve The pulmonic valve is likely normal. There is trace pulmonic valve regurgitation. Tricuspid Valve Normal tricuspid valve structure. There is trace tricuspid valve regurgitation. The right ventricular systolic pressure is normal. The right ventricular systolic pressure is 23 mmHg. Normal right atrial pressure. There is no evidence of pulmonary hypertension. Great Vessels All visible segments of the aorta are normal in size. The pulmonary artery was not well visualized. Venous The inferior vena cava is normal in size and collapses greater than 50% with inspiration. Pericardium/Pleural There is no evidence of pericardial effusion. Prior Study Comparison No prior study available for comparison. Measurements 2D Linear Measurements IVSd: 0.82 0.6-0.9/0.6-1.0 cm LVIDd: 4.51 3.9-5.3/4.2-5.9 cm LVIDd Index: 2.42 2.4-3.2/2.2-3.1 cm/m2 LVIDs: 2.70 2.0-3.6 cm LVPWd: 0.84 0.7-1.1 cm LA Diam: 3.40 2.7-3.8/3.0-4.0 cm LAIDs Index: 1.83 1.5-2.3 cm/m2 LV Mass: 148.64 67-162/88-224 g LV Mass Index: 79.91 43-95/49-115 g/m2 LVOT Diam: 1.90 3.0+(-)1.3 cm 2D Systolic Function EF 4C: 70.00 >55% EF 2C: 59.70 >55% EF BiP: 62.80 >55% Mitral Valve MV Pk E: 0.70 MV PK A: 0.70 MV Decel Time: 225.00 E/A: 1.00 E'Lateral: 10.20 E'Medial: 8.16 E/E' Med: 8.60 E/E' Lat: 6.90 PHT: 66.00 MVA PHT: 3.33 Decel [place]: 3.11 Aortic Valve AoV Pk Nando: 1.36 AoV Mn Nando: 1.03 AoV VTI: 0.36 AoV Pk Grad: 7.00 Aov Mn Grad: 5.00 LICHA Cont.VTI: 1.81 LVOT LVOT Pk Nando: 1.00 LVOT Mn Nando: 0.64 LVOT VTI: 0.23 LVOT Pk Grad: 4.00 LVOT Mn Grad: 2.00 LVOT Diam: 1.90 LVOT Area: 2.84 Diastolic Function MV Pk E: 0.70 MV Pk A: 0.70 E/A: 1.00 E'Medial: 8.16 E/E' Med: 8.60 E' Laterial: 10.20 E/E' Lat: 6.90 Right Ventricle TAPSE (mm): 21.10 TVS' Nando: 11.50 Tricuspid Valve TR Pk Nando: 2.23 TR Pk Grad: 20.00 RA Press: 3.00 RVSP: 23.00 Great Vessels Aorta Sinus of Valsalva: 3.07 2.0-3.[address] Ridge: 2.35 1.7-3.4 cm Ao Asc: 3.00 2.1-3.4 cm Ao Arch: 2.70 Updated in Other Vendor System with Status of Final Theron Li MD electronically signed on 09/18/2022 4:15:17 PM with status of Final
== END ==
LOC: HO.CARD 14:53
PROVIDERS: PCP Internal Medicine; Visit Provider Internal Medicine
DX: I47.1 Supraventricular tachycardia (principal)
CPT/HCPCS: 93306; 93356

== ENCOUNTER → 2022-09-27 14:50 | Outpatient (REF) | payer OTHER, SELFPAY ==
--- NOTE | 2022-09-27 14:53 | HM_ITS ---
Conclusion: 1. Patient was monitored for total period of 2 days and 22 hours 2. Baseline was normal sinus rhythm with average heart of 70 beats per minute 3. No significant pauses noted 4. Rare ectopy noted 5. Brief runs of SVT with longest lasting 10 beats and the fastest 103 beats per minute could represent atrial tachycardia 6. Patient marked the counter 1 time correlating with sinus rhythm with no associated symptoms MTDD
== END ==
LOC: HO.CARD 14:50
PROVIDERS: PCP Internal Medicine; Visit Provider Internal Medicine
DX: I47.1 Supraventricular tachycardia (principal); R00.2 Palpitations
CPT/HCPCS: 93242

== ENCOUNTER → 2022-12-20 09:25 | Outpatient (BNVA) | payer OTHER, SELFPAY | PROVIDERS: PCP Internal Medicine; Referring Provider Internal Medicine; Visit Provider Internal Medicine ==

== ENCOUNTER 2023-07-11 17:37 | Emergency (ER) | payer OTHER, SELFPAY ==
--- NOTE | 2023-07-11 | ECG_ITS ---
Test Reason : SVT Blood Pressure : / mmHG Vent. Rate : 110 BPM Atrial Rate : 110 BPM P-R Int : 158 ms QRS Dur : 072 ms QT Int : 322 ms P-R-T Axes : 053 006 007 degrees QTc Int : 435 ms Sinus tachycardia Otherwise normal ECG When compared with ECG of 10-SEP-2022 18:03, Criteria for Septal infarct are no longer Present T wave amplitude has decreased in Anterior leads Referred By: Generic ED Physician Electronically Signed By:HUNG GERARD MD
--- NOTE | 2023-07-11 18:56 | ED_ITS ---
HPI - Arrhythmia/Palpitations General Chief Complaint: General Medical Stated Complaint: elevated heart rate, svt Time Seen by Provider: 07/11/23 22:44 Source: patient, family and old records reviewed Mode of arrival: ambulatory Limitations: no limitations History of Present Illness HPI narrative: 58 yo female with PMH of SVT compliant with metoprolol 50mg daily under a lot of stress at work here with c/o palpitations and HR up to 120/ 130s while at rest. recent URI symptoms but no CP/SOB no GIB symptoms. She did not take her dose tonight. She has had episodes on and off for one month did not follow up with cardiology - does not have PRN metoprolol. complaint: rapid heart beat Onset (ago): day(s) (today) Duration: intermittent Severity: mild Context: occurred during rest Arrhythmia history: SVT Associated symptoms: denies other symptoms Related Data Home Medications Medication Instructions Recorded Confirmed buspirone 10 mg tablet 20 mg PO BID 12/21/20 12/20/22 buspirone 5 mg tablet 5 mg PO BID 12/21/20 12/20/22 ascorbate calcium (vitamin C) 500 500 mg PO DAILY 06/08/21 12/20/22 mg tablet multivitamin (Daily Multi-Vitamin 1 tab PO DAILY 06/08/21 12/20/22 tablet) citalopram 20 mg tablet 20 mg PO DAILY 11/14/21 12/20/22 aripiprazole 5 mg tablet 5 mg PO DAILY 09/13/22 12/20/22 clonazepam 1 mg tablet 1 mg PO BID PRN 09/13/22 12/20/22 lamotrigine 100 mg tablet 100 mg PO DAILY 09/13/22 12/20/22 trazodone 100 mg tablet 100 mg PO BEDTIME 09/13/22 12/20/22 eletriptan 40 mg tablet 40 mg PO .PRN 12/20/22 12/20/22 Previous Rx's Medication Instructions Recorded metoprolol succinate 50 mg 50 mg PO DAILY #90 tabs 09/13/22 tablet,extended release 24 hr metoprolol succinate 25 mg 25 mg PO DAILY #30 tabs 07/12/23 tablet,extended release 24 hr Allergies Allergy/AdvReac Type Severity Reaction Status Date / Time No Known Allergies Allergy Verified 07/11/23 18:56 [No Known Allergies*] Review of Systems 2 Review of Systems: Constitutional : No Weight loss, No Fever, No Chills ENT/Mouth : No sore throat, No Rhinorrhea Eyes: No Eye Pain, No Swelling Cardiovascular : no Chest Pain, no SOB, no Dyspnea on Exertion, No Orthopnea, No Edema, pos Palpitations Respiratory : No Cough, No Sputum Gastrointestinal : no Nausea, No Vomiting, No Diarrhea, No abdominal Pain, No Hematochezia, No Melena Genitourinary : No Dysuria, No Urinary Frequency Musculoskeletal : No joint pain, No Myalgias, No Joint Swelling Skin : No Skin Lesions, No rash Neuro : No Weakness, No Numbness, No Dizziness, No Headache Psych : No Anxiety/Panic, No Depression Heme/Lymph: No Bruising, No Lymphadenopathy Endocrine : No Polyuria, No Polydipsia All other systems reviewed and are negative [facility] Past Medical History Attestation statement: The following information was validated with the patient. Source: old records reviewed Medical History Migraine headache Vocal cord granuloma Surgical History History of bilateral cataract extraction H/O section Hx of tonsillectomy Family History Family History Mother No problems noted. Father HTN (hypertension) Heart attack Hx of CABG, Onset Age: 65 Other Mental health disorder Substance use disorder Social History Social History Housing: House Alcohol intake: former Year quit: 2022 Patient Tobacco Use Status: Never used Tobacco e-Cigarette/Vaping Use: Never Used Second Hand Smoke Exposure: No Advance Directives: No service: No Current occupational status: employed Current occupation: Peer professional Cognitive needs: No Hearing needs: No Vision needs: Yes (Glasses) Physical Exam 2 Vital Signs: Vital Signs: Last Vital Signs Temp 98.9 F 07/12/23 00:56 Pulse 99 07/12/23 01:09 Resp 25 H 07/12/23 01:09 BP 108/63 07/12/23 01:09 Pulse Ox 100 07/12/23 01:09 O2 Del Method Room Air 07/12/23 01:09 BMI result Body Mass Index 32.6 Appearance: Alert. Oriented X3. No acute distress. Eyes: Pupils equal, round and reactive to light. ENT: Pharynx normal. Neck: Normal inspection. Neck supple. CVS: tachycardic HR 113 heart rate and rhythm. Pulses normal. Respiratory: No respiratory distress. Breath sounds normal. Abdomen: Soft and nontender. Skin: Skin warm and dry. Normal skin color. Normal skin turgor. Extremities: No lower extremity edema. No calf ttp Neuro: Oriented X 3. No motor deficit. No sensory deficit. Course Course Course Narrative: RME: 58yo F w/PMHx SVT, depression, c/o intermittent tachycardia w/HR noted to be 104-134 today. denies any CP/SOB/palpitations today. Admits sx have been going on for 1mos. Admits to increased stressors at home Denies sx at present EKG, Labs ordered Full HPI, ROS and PE to be performed by primary ED provider. Reevaluation(s) Reevaluation #1: HR still slightly up will give 12.5mg oral metoprolol Medications Administered Discontinued Medications Generic Name Dose Route Start Last Admin Trade Name Freq PRN Reason Stop Dose Admin Sodium Chloride 1,000 mls @ 999 mls/hr 07/11/23 23:00 07/12/23 00:54 Ns IV 07/12/23 00:00 Infused .Q1H1M AHSAN Infusion Metoprolol Succinate 50 mg 07/11/23 22:50 07/11/23 23:10 Metoprolol Succinate Er 50 Mg Tab.Er.24h PO 07/11/23 22:51 50 mg ONCE ONE Administration Protocol Metoprolol Tartrate 12.5 mg 07/12/23 00:07 07/12/23 00:54 Metoprolol Tartrate 25 Mg Tablet PO 07/12/23 00:08 12.5 mg ONCE ONE Administration Protocol Medical Decision Making Medical Decision Making [facility] Narrative: 58 yo female with SVT on metoprolol here with intermittent elevated HR x 1 day up to 130s at this time in sinus tachycardia without CP/SOB to suggest ACS or VTE - will obtian lytes, TSH, trop and start on fluids as well as her PO metoprolol. Given 1 month of symptoms will likely increase her metoprolol there is room with her BP. She is not toxic appearing Differential Diagnosis Differential Diagnoses: The differential diagnosis associated with the presentation includes anxiety, tachycardia, palpitations Admission/Observation Consideration of admission/observation: Escalation of care including admission/observation considered HR down to 100s at this time will refer to cardiology - holter monitor start on metoprolol 75mg daily sinus tachycardia without symptoms duration of visit Lab Data MDM Lab Attestation statement: I reviewed the patient's lab results. 07/11/23 19:54 07/11/23 19:54 Labs: Lab Results 07/11/23 Range/Units 19:54 WBC 10.3 (4.8-10.8) X10*3/uL RBC 4.46 (4.20-5.50) X10*6/uL Hgb 13.3 (12.0-16.0) g/dl Hct 40.1 (37.0-47.0) % MCV 89.9 (80.0-98.0) fL MCH 29.8 (27.0-33.0) pg MCHC 33.2 (31.0-35.0) g/dl RDW 11.8 (11.0-16.0) % Plt Count 271 (160-400) X10*3/uL MPV 9.7 (9.4-12.3) fL Immature Gran % (Auto) 0.5 H (0.0-0.4) % Neut % (Auto) 71.6 (45-73) % Lymph % (Auto) 21.0 (20-40) % Bracken % (Auto) 5.8 (2-11) % Eos % (Auto) 0.6 (0-4) % Baso % (Auto) 0.5 (0-2) % Lymph # (Auto) 2.2 (1.2-4.9) X10*3/uL Bracken # (Auto) 0.6 (0.1-1.2) X10*3/uL Eos # (Auto) 0.1 (0.0-0.4) X10*3/uL Baso # (Auto) 0.1 (0.0-0.2) X10*3/uL Abs Immat Gran (auto) 0.05 H (0.00-0.03) X10*3/uL Absolute Neuts (auto) 7.4 (2.0-8.3) x10*3/uL Absolute Nucleated RBC 0.000 (0.0-0.012) X10*3/uL Nucleated RBC % (auto) 0.0 (0.0-0.2) /100WBC PT 11.3 (11.1-13.3) SEC INR 0.9 (0.9-1.1) Sodium 142 (135-145) mmol/L Potassium 4.1 (3.3-5.1) mmol/L Chloride 106 (96-108) mmol/L Carbon Dioxide 27 (22-29) mmol/L Anion Gap 13 (12-20) BUN 15 (9-16) mg/dL Creatinine 1.00 (0.5-1.4) mg/dL Estim Creat Clear Calc 58.8 Estimated GFR 57 Random Glucose 115 (60-115) mg/dL Calcium 9.3 D (8.4-10.2) mg/dL Magnesium 1.8 (1.6-2.6) mg/dL Total Bilirubin 0.4 (0.0-1.0) mg/dL AST 18 (5-31) U/L ALT 17 (0-31) U/L Alkaline Phosphatase 79 (39-117) U/L Troponin I High Sens < 2.7 D (<3.5-17.0) ng/L Total Protein 7.8 (6.5-8.0) g/dL Albumin 4.1 (3.5-5.0) g/dL TSH 1.15 (0.32-4.0) uIU/mL Influenza Type A (PCR) NEGATIVE (Negative) Influenza Type B (PCR) NEGATIVE (Negative) RSV RNA Qual (PCR) NEGATIVE (Negative) SARS-CoV-2 RNA (RT-PCR) NEGATIVE (Negative) Independent Interpretation I performed an independent interpretation of an: EKG Interpretation: Rate: 110 Rhythm: sinus tachycardia [place]: normal Normal P waves. Normal NEDA. Normal QRS complex. ST T wave : no ANDRIY, inverted t waves in III and aVF qTC: normal prior studies: no sig change from priors The study has been interpreted contemporaneously by me. . Independent Historian Clinical information obtained from an independent historian. History obtained from or confirmed by: Spouse External Record Review External record reviewed: Office record Prescription Management I considered prescription management with: Other Discharge Plan Discharge Clinical Impression: Sinus tachycardia Patient Disposition: Home, Self-Care Instructions: Tachycardia (ED) Additional Instructions: return for chest pain, dizziness, shortness of breath or any other concerns. start 75mg metoprolol - take your 50mg tab and 25mg tab together = 75mg dose follow up with [facility] call for appointment you need a holter monitor Prescriptions: New metoprolol succinate 25 mg tablet extended release 24 hr 25 mg PO DAILY Qty: 30 0RF No Action buspirone 10 mg tablet 20 mg PO BID buspirone 5 mg tablet 5 mg PO BID trazodone 100 mg tablet 100 mg PO BEDTIME multivitamin [Daily Multi-Vitamin] Tablet 1 tab PO DAILY ascorbate calcium (vitamin C) 500 mg tablet 500 mg PO DAILY citalopram 20 mg tablet 20 mg PO DAILY aripiprazole 5 mg tablet 5 mg PO DAILY clonazepam 1 mg tablet 1 mg PO BID PRN lamotrigine 100 mg tablet 100 mg PO DAILY metoprolol succinate 50 mg tablet extended release 24 hr 50 mg PO DAILY Qty: 90 3RF eletriptan 40 mg tablet 40 mg PO .PRN Stand Alone Forms: Work/School Release Interventions: ED Discharge Assessment Last Done: 07/12/23 01:32 Discharge Date/Time: 07/12/23 01:32
[2023-07-11 18:57] VITALS: BP 153/88; PULSE 106; RESP 18; TEMP 37.2; O2SAT 98; BMI 32.6
[2023-07-11 20:04] LABS: MANUAL DIFF FLAG NO
[2023-07-11 20:06] LABS: Basophils Absolute Auto 0.1 X10*3/uL (0.0-0.2); Basophils Percent Auto 0.5 % (0-2); Eosinophils Absolute Auto 0.1 X10*3/uL (0.0-0.4); Eosinophils Percent Auto 0.6 % (0-4); Hematocrit 40.1 % (37.0-47.0); Hemoglobin 13.3 g/dl (12.0-16.0); Imm Gran Abs Auto 0.05 X10*3/uL (0.00-0.03); Imm Gran Pct Auto 0.5 % (0.0-0.4); Lymphocytes Absolute Auto 2.2 X10*3/uL (1.2-4.9); Mean Corpuscular HGB Conc 33.2 g/dl (31.0-35.0); Mean Corpuscular Hemoglobin 29.8 pg (27.0-33.0); Mean Corpuscular Volume 89.9 fL (80.0-98.0); Mean Platelet Volume 9.7 fL (9.4-12.3); Monocytes Absolute Auto 0.6 X10*3/uL (0.1-1.2); Monocytes Percent Auto 5.8 % (2-11); Neutrophils Absolute Auto 7.4 x10*3/uL (2.0-8.3); Neutrophils Percent Auto 71.6 % (45-73); Platelet Count 271 X10*3/uL (160-400); Red Blood Count 4.46 X10*6/uL (4.20-5.50); Red Cell Distribution Width 11.8 % (11.0-16.0); White Blood Count 10.3 X10*3/uL (4.8-10.8)
[2023-07-11 20:12] LABS: INTERNATIONAL NORM RATIO 0.9 (0.9-1.1); Prothrombin Time 11.3 SEC (11.1-13.3)
[2023-07-11 20:20] LABS: Alanine Aminotransferase 17 U/L (0-31); Albumin Level 4.1 g/dL (3.5-5.0); Alkaline Phosphatase 79 U/L (39-117); Anion Gap 13 (12-20); Aspartate Amino Transferase 18 U/L (5-31); Bilirubin Total 0.4 mg/dL (0.0-1.0); Blood Urea Nitrogen 15 mg/dL (9-16); Calcium 9.3 mg/dL (8.4-10.2); Carbon Dioxide 27 mmol/L (22-29); Chloride 106 mmol/L (96-108); Creatinine Clr Calc Pharmacy 58.8; Estimated Glomerular Filt Rate 57; Glucose Random 115 mg/dL (60-115); Potassium 4.1 mmol/L (3.3-5.1); Sodium 142 mmol/L (135-145); Total Protein 7.8 g/dL (6.5-8.0)
[2023-07-11 20:28] LABS: Magnesium 1.8 mg/dL (1.6-2.6)
[2023-07-11 20:31] LABS: Troponin-I High Sensitivity < 2.7 ng/L (<3.5-17.0)
[2023-07-11 20:40] LABS: TSH reflex Free T4 1.15 uIU/mL (0.32-4.0)
[2023-07-11 20:42] LABS: Influenza A PCR NEGATIVE (Negative); Influenza B PCR NEGATIVE (Negative); Resp Syncy Virus RNA Qual PCR NEGATIVE (Negative); SARS COV2 PCR INHOUSE NEGATIVE (Negative)
[2023-07-11] MEDS: 0.9 % Sodium Chloride 1,000 ML 999 ML IV (23:02)
[2023-07-11] MEDS: Metoprolol Succinate ER 50 MG TAB.ER.24H PO (23:10)
[2023-07-12] MEDS: Metoprolol Tartrate 25 MG TABLET 12.5 MG PO (00:54)
[2023-07-12 00:56] VITALS: BP 118/69; PULSE 104; RESP 18; TEMP 37.2; O2SAT 97
[2023-07-12 01:09] VITALS: BP 108/63; PULSE 99; RESP 25; O2SAT 100
== END 2023-07-12 01:32 | disposition home or self-care (01) ==
PROVIDERS: Physician Assistant; Emergency Provider Emergency Medicine; PCP Internal Medicine
DX: R00.0 Tachycardia, unspecified (principal); R00.2 Palpitations; R11.2 Nausea with vomiting, unspecified; Z56.3 Stressful work schedule; Z20.828 Contact with and (suspected) exposure to other viral communicable diseases; Z20.822 Contact with and (suspected) exposure to COVID-19; Z79.899 Other long term (current) drug therapy
CPT/HCPCS: 0241U; 36415; 80053; 83735; 84443; 84484; 85025; 85610; 93005; 96360; 96361; 99284

== ENCOUNTER → 2023-07-11 17:50 | Outpatient (BNV) | payer OTHER, SELFPAY | PROVIDERS: Emergency Provider Emergency Medicine; PCP Internal Medicine; Visit Provider Internal Medicine Cardiovascular Disease | DX: R00.0 Tachycardia, unspecified (principal) | CPT/HCPCS: 93010 ==

== ENCOUNTER 2023-08-01 14:33 | Outpatient (AMB) | payer OTHER, SELFPAY ==
--- NOTE | 2023-08-01 14:35 | A.OFFVIS_ITS ---
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 Accompanied by: Self / Same As Patient Allergies No Known Allergies [No Known Allergies*] Allergy (Verified 08/01/23 14:37) Medication List - Last Reconciled 08/01/23 by Rah Gaitan MD aripiprazole 5 mg PO DAILY ascorbate calcium (vitamin C) 500 mg PO DAILY buspirone 20 mg PO BID buspirone 5 mg PO BID clonazepam 1 mg PO BID PRN eletriptan 40 mg PO .PRN lamotrigine 100 mg PO DAILY metoprolol succinate ER 50 mg PO DAILY metoprolol succinate ER 25 mg PO DAILY multivitamin (Daily Multi-Vitamin tablet) 1 tab PO DAILY vilazodone 20 mg PO QAM HPI HPI Comments History of Present Illness Details Jose returns for follow-up. Previously seen in consultation regarding SVT. She had an episode of palpitations that started after having some coffee. Subsequently, seen in the ER and received IV adenosine. It seems that she got 2x 6mg dose of adenosine. Then converted to sinus rhythm and then discharged home. Mostly feeling okay but few weeks ago, she started having palpitations again. Came to the ER and noted to have rather sinus tachycardia. Then it seems that beta-aneta dose has been increased. She also has lot of anxiety at baseline and not clear how much that plays a role. Otherwise, she is noticing chest pains at different times. She is also describing exertional characteristics. [facility] Medical History Migraine headache Vocal cord granuloma Surgical History History of bilateral cataract extraction H/O section Hx of tonsillectomy Family History Mother No problems noted. Father HTN (hypertension) Heart attack Hx of CABG, Onset Age: 65 Other Mental health disorder Substance use disorder Social History Housing: House Alcohol intake: former Year quit: 2022 Patient Tobacco Use Status: Never used Tobacco e-Cigarette/Vaping Use: Never Used Second Hand Smoke Exposure: No service: No Current occupational status: employed Current occupation: Peer professional Cognitive needs: No Hearing needs: No Vision needs: Yes (Glasses) Review of Systems Const Denies weakness ENT Denies dizziness Card Denies chest pain, Denies chest pain with activity, Denies syncope, Denies rapid heart rate, Denies pedal edema, Denies edema, Denies leg edema, Denies lightheadedness, Denies palpitations, Denies dyspnea, Denies dyspnea on exertion and Denies orthopnea Resp Denies cough, Denies dyspnea and Denies dyspnea on exertion GI Denies hematochezia and Denies change in stool character Musc Denies abnormal gait, Denies muscle cramps, Denies muscle weakness, Denies numbness, Denies radiating pain into limb and Denies tingling Neuro Denies abnormal gait, Denies dizziness, Denies syncope, Denies numbness, Denies tingling and Denies weakness Endo Denies palpitations Physical Exam Vital Signs: Last Vital Signs Pulse 82 08/01/23 14:36 BP 110/70 08/01/23 14:36 BMI result Body Mass Index 34.3 Const General: comfortable and no acute distress Orientation/consciousness: patient oriented x3 HEENT Other: Unremarkable Head: Yes normal to inspection Neck Neck: Yes normal visual inspection Chest Chest palpation & inspection: normal inspection of the chest Resp Auscultation: clear to auscultation bilaterally Cardio Palpation: normal PMI Heart sounds: S1 normal heart sound present, S2 normal heart sound present, no gallops, no murmurs and no rubs GI Palpation (GI): Soft to palpation Back/Spine/Pelvis Other: unremarkable Skin General skin exam: no rashes or lesions noted Neuro General: patient oriented x3 Extrem General: Yes normal to inspection Psych Mental Status: mental status grossly normal Assessment & Plan Assessment & Plan (1) SVT (supraventricular tachycardia): Code(s): I47.1 - Supraventricular tachycardia (2) Precordial chest pain: Code(s): R07.2 - Precordial pain Plan In the initial EKG from the emergency room, narrow complex tachycardia at 191/Min; suspect AV trina reentrant tachycardia. In the repeat EKG, sinus rhythm at 96/Min; normal IN and corrected QT. Echocardiogram with LVEF of 60-65%. Normal peak global longitudinal strain. Mild aortic regurgitation. Otherwise unremarkable. In the more recent EKG from the ER, sinus tachycardia at 110/min. Anxiety also may play a role in this. May remain on beta-blockers. She has pending a repeat Holter. Unless there is clear-cut evidence of recurrent SVT, we will continue medical management. With regard to the chest pain, she is describing some exertional characteristics. Hence get an exercise stress perfusion imaging study. Patient agreeable to the above plan. Follow-up in a few weeks' time. Total time spent including review of data, counseling, documentation, coordination of care-32 minutes. Orders: Orders CA stress test Today R07.2 - Precordial pain NM cardiolite stress test Today R07.2 - Precordial pain Coding Level of Care Code Est Pt Level 4 (81784) Diagnoses SVT (supraventricular tachycardia) I47.1 Precordial chest pain R07.2
[2023-08-01 14:36] VITALS: BP 110/70; PULSE 82; BMI 34.3
== END 2023-08-01 14:53 | disposition home or self-care (01) ==
PROVIDERS: PCP Internal Medicine; Visit Provider Internal Medicine
DX: I47.10 Supraventricular tachycardia, unspecified (principal); R07.2 Precordial pain
CPT/HCPCS: 99214

== ENCOUNTER → 2023-08-01 14:33 | Outpatient (BNVA) | payer OTHER, SELFPAY | PROVIDERS: PCP Internal Medicine; Visit Provider Internal Medicine ==

== ENCOUNTER → 2023-08-05 12:49 | Outpatient (REF) | payer OTHER, SELFPAY ==
--- NOTE | 2023-08-05 12:51 | HM_ITS ---
* Total monitoring time 3 days. * Underlying rhythm is sinus with an average rate of 84/Min. Range 68-120/Min. * Very rare supraventricular/ventricular ectopy. * No significant pauses or AV blocks. * Patient marker used once in association with sinus rhythm. No diary events. MTDD
== END ==
LOC: HO.CARD 12:49
PROVIDERS: PCP Internal Medicine; Visit Provider Nurse Practitioner Family
DX: I47.10 Supraventricular tachycardia, unspecified (principal)
CPT/HCPCS: 93242

== ENCOUNTER → 2023-08-05 12:51 | Outpatient (BNV) | payer OTHER, SELFPAY | PROVIDERS: PCP Internal Medicine; Visit Provider Internal Medicine | DX: I49.1 Atrial premature depolarization (principal) | CPT/HCPCS: 93244 ==

== ENCOUNTER 2023-08-21 12:43 | Outpatient (AMB) | payer OTHER, SELFPAY ==
[2023-08-21 12:45] VITALS: BP 110/66; PULSE 63; O2SAT 98; BMI 34.7
--- NOTE | 2023-08-21 12:45 | MHC.PC.OV ---
Vital Signs 08/21/23 12:45 Height 5 ft 2 in Weight 190 lb BMI 34.7 BP 110/66 Blood Pressure Location Lt brachial Position Sitting Pulse 63 Pulse Source Pulse Oximeter Pulse Oximetry (%) 98 Oxygen Delivery Method Room Air Intake Visit Reasons: annual exam Crab Fisher Required: No Electric Motorman: Not Required per policy Accompanied by: Self / Same As Patient Allergies No Known Allergies [No Known Allergies*] Allergy (Verified 08/21/23 12:45) Medication List - Last Reconciled 08/21/23 by Shar Walker MD aripiprazole 5 mg PO DAILY ascorbate calcium (vitamin C) 500 mg PO DAILY buspirone 20 mg PO BID buspirone 5 mg PO BID clonazepam 1 mg PO BID PRN eletriptan 40 mg PO .PRN lamotrigine 100 mg PO DAILY metoprolol succinate ER 50 mg PO DAILY metoprolol succinate ER 25 mg PO DAILY multivitamin (Daily Multi-Vitamin tablet) 1 tab PO DAILY vilazodone 20 mg PO QAM Tobacco use date assessed: 08/21/23 Dental Screening Dental Screen Date: 08/21/23 Did you have a dental visit in the last 12 months?: Yes Did you have a dental problem in the last 6 months where you did not have access to dental care?: No Was dental information given to patient?: Patient has dentist HPI annual exam HPI Details severe depression; sees psych; migraines and svt under control [facility] Medical History Migraine headache Vocal cord granuloma Surgical History History of bilateral cataract extraction H/O section Hx of tonsillectomy Family History Mother No problems noted. Father HTN (hypertension) Heart attack Hx of CABG, Onset Age: 65 Other Mental health disorder Substance use disorder Social History Housing: House Alcohol intake: former Year quit: 2022 Patient Tobacco Use Status: Never used Tobacco e-Cigarette/Vaping Use: Never Used Second Hand Smoke Exposure: No service: No Current occupational status: employed Current occupation: Peer professional Cognitive needs: No Hearing needs: No Vision needs: Yes (Glasses) Questionnaire PHQ-9 Over the last 2 weeks, how often have you been bothered by any of the following problems? 1. Little interest or pleasure in doing things: not at all 2. Feeling down, depressed, or hopeless: not at all 3. Trouble falling or staying asleep, or sleeping too much: not at all 4. Feeling tired or having little energy: not at all 5. Poor appetite or overeating: not at all 6. Feeling bad about yourself - or that you are a failure or have let yourself or your family down: not at all 7. Trouble concentrating on things, such as reading the newspaper or watching television: not at all 8. Moving or speaking so slowly that other people could have noticed. Or the opposite - being so fidgety or restless that you have been moving around a lot more than usual: not at all 9. Thoughts that you would be better off or of hurting yourself in some way: not at all Total score: 0 Depression Screening Interpretation: Negative Depression Screening Done: Yes 80324 - PHQ-9 Billing: Yes Source: Developed by Drs. Quentin Garner, Johana Anaya, Scott Scott and colleagues, with an educational latisha from [employer]. Thrive Questionnaire Date Thrive assessed: 08/21/23 I am a: Patient What is your living situation today?: I have a steady place to live Within the past 12 months, did the food you bought not last and you didn't have the money to get more?: Never true Within the past 12 months, did you worry whether your food would run out before you got money to buy more?: Never true Do you have trouble paying for medicines?: No Do you have trouble getting transportation to medical appointments?: No Do you have trouble paying your heating and electricity bill?: No Do you have trouble taking care of your child, family member or friend?: No Do you have trouble with day-to-day activities such as bathing, preparing meals, shopping, managing finances, etc.?: No Are you currently unemployed and looking for a job?: No Are you interested in more education?: No Please select the resources that you would like help with: None THRIVE Score: 0 AUDIT C Alcohol Use Questionnaire (AUDIT-C) 1. How often do you have a drink containing alcohol?: Monthly or less 2. How many drinks containing alcohol do you have on a typical day when you are drinking?: 1 or 2 3. How often do you have six or more drinks on one occasion?: Never Total Score: 1 Score Reviewed/Action Taken: Yes MINI-7 AMB Questionnaire MINI-7 Date MINI - 7 assessed: 08/21/23 Feeling nervous, anxious, or on edge: 2 = More than half the days Not being able to stop or control worryin = More than half the days Worrying too much about different things: 0 = Not at all Trouble relaxin = Not at all Being so restless that it is hard to sit still: 0 = Not at all Becoming easily annoyed or irritable: 0 = Not at all Feeling afraid as if something awful might happen: 0 = Not at all Total MINI-7 score (0-4 normal; 5-9 mild; 10-14 moderate; 15-21 severe): 4 Source: Developed by Drs. Quentin Garner, Johana Anaya, Scott Scott and colleagues, with an educational latisha from [employer]. MINI-7 Assessment Billing MINI-7 Assessment Tool: MINI-7 Assessment 31544 Review of Systems Const Denies chills, Denies fatigue, Denies headache(s) and Denies weight loss Eyes Denies change in vision, Denies diplopia and Denies eye pain ENT Denies vertigo, Denies dizziness, Denies headache(s) and Denies nasal discharge Card Denies chest pain, Denies rapid heart rate and Denies dyspnea on exertion Resp Denies chest congestion, Denies cough, Denies pain with cough and Denies dyspnea on exertion GI Denies abdominal pain, Denies hematochezia and Denies change in bowel habits Musc Denies myalgias, Denies arthralgias and Denies joint swelling Skin/Breast Denies lesions and Denies unusual bruising Neuro Denies vertigo, Denies dizziness, Denies headache(s) and Denies focal weakness Endo Denies fatigue Physical exam (Primary Care) Vital Signs: Last Vital Signs Pulse 63 08/21/23 12:45 BP 110/66 08/21/23 12:45 Pulse Ox 98 08/21/23 12:45 Oxygen Delivery Method Room Air 08/21/23 12:45 BMI result Body Mass Index 34.7 Tobacco/Smoking Status: Tobacco use Status Tobacco use date assessed 08/21/23 08/21/23 12:51 Patient Tobacco Use Status Never used Tobacco 08/21/23 12:51 e-Cigarette/Vaping Use Never Used 08/21/23 12:51 PHQ-9: PHQ-9 Score PHQ-9: Total score 0 08/21/23 12:51 Depression Screening Interpretation: Negative Thrive Assessment: Date of Thrive Assessment Date Thrive assessed 08/21/23 08/21/23 12:51 Const General: cooperative, healthy appearing and no acute distress Orientation/consciousness: oriented to person, oriented to place and oriented to time HENMT Head: Yes normal to inspection, Yes normocephalic and Yes atraumatic Mouth: Normal oral and palatal mucosa present and tongue normal Throat: Yes posterior oropharynx normal and Yes uvula midline Eyes General: appearance normal, both eyes and all related structures Neck Neck: Yes normal visual inspection, Yes full ROM and Yes no lymphadenopathy Thyroid: Thyroid normal Carotids: normal carotid upstroke Chest Chest palpation & inspection: normal inspection of the chest Resp Effort & Inspection: normal respiratory effort and able to speak in complete sentences Auscultation: clear to auscultation bilaterally Cardio Jugular venous distension: no JVD Palpation: normal PMI Rate: regular rate Rhythm: regular rhythm Heart sounds: S1 normal heart sound present and S2 normal heart sound present GI Inspection: Yes normal to inspection Palpation (GI): Soft to palpation and No hepatosplenomegaly present Auscultation: normal bowel sounds General: Yes no CVA tenderness Back/Spine/Pelvis Back: no CVA tenderness Skin General skin exam: no rashes or lesions noted Neuro General: oriented to person, oriented to place and oriented to time Extrem General: Yes normal to inspection and Yes full ROM Assessment and Plan Assessment & Plan (1) Physical exam: Code(s): Z00.00 - Encounter for general adult medical examination without abnormal findings Plan: do labs (2) Depression, major, severe recurrence: Code(s): F33.2 - Major depressive disorder, recurrent severe without psychotic features Plan: stable; as per psych (3) SVT (supraventricular tachycardia): Code(s): I47.1 - Supraventricular tachycardia Plan: stable; same meds (4) Migraine headache: Code(s): G43.909 - Migraine, unspecified, not intractable, without status migrainosus Plan: stable; same meds Orders: Orders Lipid Panel Today E78.5 - Hyperlipidemia, unspecified Thyroid Stimulating Hormone Today E03.9 - Hypothyroidism, unspecified Complete Blood Count Auto Diff Today D64.9 - Anemia, unspecified Comprehensive Mercer. Panel Fast Today N28.9 - Disorder of kidney and ureter, unspecified Coding Level of Care Code Est Pt Prev Care 40-64y(09200) Diagnoses Physical exam Z00.00 Depression, major, severe recurrence F33.2 SVT (supraventricular tachycardia) I47.1 Migraine headache G43.909 Additional Codes MINI-7 Assessment Billing - MINI-7 Assessment Tool: MINI-7 Assessment [id number] ([id number])
== END 2023-08-21 13:02 | disposition home or self-care (01) ==
PROVIDERS: PCP Internal Medicine; Visit Provider Internal Medicine
DX: Z00.00 Encounter for general adult medical examination without abnormal findings (principal); F33.2 Major depressive disorder, recurrent severe without psychotic features; I47.10 Supraventricular tachycardia, unspecified; G43.909 Migraine, unspecified, not intractable, without status migrainosus
CPT/HCPCS: 99396

== ENCOUNTER 2023-09-02 15:13 | Outpatient (REF) | payer OTHER, SELFPAY ==
--- NOTE | ~2023-09-02 | MM_ITS ---
EXAMINATION: MM SCREENING DIGITAL BREAST TOMOSYNTHESIS, BILATERAL CLINICAL INFORMATION: Screening. Asymptomatic. COMPARISON: Mammography: This study is compared with prior exams dating back to 2019. TECHNIQUE: Digital breast tomosynthesis is performed in both the craniocaudal and mediolateral oblique views along with computer-aided detection (CAD). Synthesized 2D images are generated from the tomosynthesis. FINDINGS: There are scattered areas of fibroglandular density (ACR BI-RADS breast composition Category b). There are no significant masses, abnormal calcifications, or other abnormalities. Few, bilateral, benign, unchanged calcifications are present in each breast. MM/MM tomosynthesis screening BI IMPRESSION: No mammographic evidence of malignancy. ASSESSMENT: BI-RADS BI-RADS 2 - Benign Findings RECOMMENDATION: Routine annual mammography screening. 1 year F/U This examination should not preclude the clinical evaluation of a suspicious palpable abnormality. This patient's information was entered into a reminder system with a target due date for their next mammogram.
== END 2023-09-02 15:14 | disposition home or self-care (01) ==
LOC: HO.MAMMO 15:13
PROVIDERS: PCP Internal Medicine; Visit Provider Internal Medicine
DX: Z12.31 Encounter for screening mammogram for malignant neoplasm of breast (principal)
CPT/HCPCS: 77063; 77067

== ENCOUNTER → 2023-09-02 15:30 | Outpatient (BNV) | payer OTHER, SELFPAY | PROVIDERS: PCP Internal Medicine; Visit Provider Radiology Diagnostic Radiology | DX: Z12.31 Encounter for screening mammogram for malignant neoplasm of breast (principal) | CPT/HCPCS: 77063; 77067 ==

== ENCOUNTER 2023-09-07 07:36 | Outpatient (REF) | payer OTHER, SELFPAY ==
[2023-09-07 07:59] LABS: MANUAL DIFF FLAG NO
[2023-09-07 08:14] LABS: Basophils Absolute Auto 0.1 X10*3/uL (0.0-0.2); Basophils Percent Auto 0.8 % (0-2); Eosinophils Absolute Auto 0.2 X10*3/uL (0.0-0.4); Eosinophils Percent Auto 2.6 % (0-4); Hematocrit 40.9 % (37.0-47.0); Hemoglobin 13.4 g/dl (12.0-16.0); Imm Gran Abs Auto 0.02 X10*3/uL (0.00-0.03); Imm Gran Pct Auto 0.2 % (0.0-0.4); Lymphocytes Absolute Auto 3.1 X10*3/uL (1.2-4.9); Mean Corpuscular HGB Conc 32.8 g/dl (31.0-35.0); Mean Corpuscular Hemoglobin 29.5 pg (27.0-33.0); Mean Corpuscular Volume 89.9 fL (80.0-98.0); Mean Platelet Volume 9.6 fL (9.4-12.3); Monocytes Absolute Auto 0.6 X10*3/uL (0.1-1.2); Monocytes Percent Auto 6.7 % (2-11); Neutrophils Absolute Auto 4.9 x10*3/uL (2.0-8.3); Neutrophils Percent Auto 54.7 % (45-73); Platelet Count 284 X10*3/uL (160-400); Red Blood Count 4.55 X10*6/uL (4.20-5.50); Red Cell Distribution Width 12.3 % (11.0-16.0)
[2023-09-07 08:45] LABS: Alanine Aminotransferase 34 U/L (0-31); Albumin Level 4.1 g/dL (3.5-5.0); Alkaline Phosphatase 72 U/L (39-117); Anion Gap 13 (12-20); Aspartate Amino Transferase 23 U/L (5-31); Bilirubin Total 0.5 mg/dL (0.0-1.0); Blood Urea Nitrogen 20 mg/dL (9-16); Calcium 9.2 mg/dL (8.4-10.2); Carbon Dioxide 28 mmol/L (22-29); Chloride 106 mmol/L (96-108); Cholesterol 171 mg/dL (<200); Estimated Glomerular Filt Rate > 60; Glucose Fasting 101 mg/dL (60-99); HDL Cholesterol 46 mg/dL (>40); LDL Cholesterol Calculated 112 mg/dL (<100); Potassium 4.5 mmol/L (3.3-5.1); Sodium 142 mmol/L (135-145); Total Protein 7.7 g/dL (6.5-8.0); Triglycerides 67 mg/dL (<150)
[2023-09-07 09:04] LABS: Thyroid Stimulating Hormone 2.58 uIU/mL (0.32-4.0)
== END 2023-09-07 07:37 | disposition home or self-care (01) ==
LOC: HO.LAB 07:36
PROVIDERS: PCP Internal Medicine; Visit Provider Internal Medicine
DX: E78.5 Hyperlipidemia, unspecified (principal); E03.9 Hypothyroidism, unspecified; N28.9 Disorder of kidney and ureter, unspecified; D64.9 Anemia, unspecified
CPT/HCPCS: 36415; 80053; 80061; 84443; 85025

== ENCOUNTER → 2023-09-11 07:50 | Outpatient (REF) | payer OTHER, SELFPAY ==
--- NOTE | ~2023-09-11 | NM_ITS ---
Exercise Myocardial perfusion study Indication: Precordial chest pain to evaluate for myocardial ischemia Technique: The patient was brought in for an exercise perfusion study on 09/11/2023. Patient performed exercise as per Marco A protocol and was injected 30 mCi of sestamibi was given intravenously one target HR was achieved. Images were obtained using the SPECT gamma camera interlaced with the gating device. Images were obtained in supine position. Resting perfusion study was performed on 09/13/2023. Patient was administered 30 mCi of sestamibi intravenously at rest. Images were then obtained in supine position. Images obtained with and without CT attenuation. Total DLP 103 mGy-cm. Images were processed with the software and compared side to side in short axis, horizontal long axis and vertical long axis views. Findings: The stress perfusion study showed non attenuated images show minimal thinning of the apical wall of the LV myocardium. Remainder of the LV myocardium is normally perfused. Attenuation corrected images show mildly reduced uptake in the apex of the LV myocardium. The gated study shows normal LV systolic function with calculated LVEF of 72%. LV cavity is normal in size. The gated study shows normal systolic wall thickening and contraction of all segments. There is no transient ischemic dilation. Resting study shows no change in perfusion pattern compared to stress perfusion study. Gating at rest reveals normal systolic wall motion with ejection fraction at 64%. The findings are consistent with likely normal myocardial perfusion. NM/NM cardiolite stress test Impression: 1. Normal myocardial perfusion 2. Gated LVEF is 72% 3. Transient ischemic dilatation not present Stress EKG is dictated separately
--- NOTE | 2023-09-11 07:52 | CA_ITS ---
Acquisition Time: 2023-09-11 07:54:30 Total Exercise Time: 00:07:00 Test Indications: Chest Pain Medications: SEE H Protocol: BRAD Max HR: 144 BPM 90% of Pred: 160 BPM Max BP: 158/060 mmHG Max Work Load: 8.5 METS Exercise stress test exercise 7 min of Brad protocol achieving 88% MPHR, with 3/10 mid chest tightness, mild SOB, without arrhythmias, with normotensive response to exercise, with inverted T waves leads 2V3-V6. Chest pain resovled with rest. Nuclear images pending. Test reviewed with Dr. Li Referred By: Rah Gaitan Overread By: Amanda Carcamo
== END ==
LOC: HO.CARD 07:50
PROVIDERS: PCP Internal Medicine; Visit Provider Internal Medicine
DX: R07.2 Precordial pain (principal)
CPT/HCPCS: 78452; 93017; A9500

== ENCOUNTER → 2023-09-11 07:52 | Outpatient (BNV) | payer OTHER, SELFPAY | PROVIDERS: PCP Internal Medicine; Visit Provider Nurse Practitioner | DX: R07.2 Precordial pain (principal) | CPT/HCPCS: 78452; 93016; 93018 ==

== ENCOUNTER 2023-10-25 06:02 | Outpatient (REF) | payer OTHER, SELFPAY ==
[2023-10-25 07:18] LABS: Anion Gap 13 (12-20); Blood Urea Nitrogen 17 mg/dL (9-16); Calcium 9.2 mg/dL (8.4-10.2); Carbon Dioxide 27 mmol/L (22-29); Chloride 104 mmol/L (96-108); Estimated Glomerular Filt Rate > 60; Glucose Random 91 mg/dL (60-115); Potassium 4.4 mmol/L (3.3-5.1); Sodium 140 mmol/L (135-145)
== END 2023-10-25 06:03 | disposition home or self-care (01) ==
LOC: HO.LAB 06:02
PROVIDERS: PCP Internal Medicine; Visit Provider Internal Medicine
DX: R07.2 Precordial pain (principal); I47.10 Supraventricular tachycardia, unspecified; R94.39 Abnormal result of other cardiovascular function study
CPT/HCPCS: 36415; 80048

== ENCOUNTER 2023-11-14 15:12 | Outpatient (AMB) | payer OTHER, SELFPAY ==
[2023-11-14 15:17] VITALS: BP 120/78; PULSE 89; O2SAT 98; BMI 35.5
--- NOTE | 2023-11-14 15:17 | MHC.OFFVIS ---
Vital Signs 11/14/23 15:17 Height 5 ft 2 in Weight 194 lb 0.108 oz BMI 35.5 BP 120/78 Blood Pressure Location Lt brachial Position Sitting Pulse 89 Pulse Source Pulse Oximeter Pulse Oximetry (%) 98 Oxygen Delivery Method Room Air Intake Visit Reasons: follow up testing Intake Note: follow up after testing pt feels good Allergies No Known Allergies [No Known Allergies*] Allergy (Verified 08/21/23 12:45) Medication List - Last Reconciled 11/14/23 by Janna Rothman, METALLURGICAL ENGINEERING TECHNICIAN-C aripiprazole 5 mg PO DAILY ascorbate calcium (vitamin C) 500 mg PO DAILY buspirone 20 mg PO BID buspirone 5 mg PO BID clonazepam 1 mg PO BID PRN eletriptan 40 mg PO .PRN lamotrigine 100 mg PO DAILY metoprolol succinate ER 50 mg PO DAILY metoprolol succinate ER 25 mg PO DAILY multivitamin (Daily Multi-Vitamin tablet) 1 tab PO DAILY vilazodone 20 mg PO QAM HPI HPI follow up testing: Details: Jose is a 58-year-old female with past medical history mild obesity, supraventricular tachycardia who reported some chest discomfort with exertional component and heart palpitations on last visit. An exercise nuclear stress test and Holter monitor were ordered. She now presents for follow-up. Today she reports that she has been feeling better recently. She has not had recurrent heart palpitations causing her concern. She is taking her metoprolol XL 75 mg daily. No recent ER visits. No recurrent chest discomfort. No clear chest discomfort brought on by exertional activities. No concerning shortness of breath, PND, orthopnea or edema. No lightheadedness, presyncope, syncope, falls. 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 Taking meds as directed. [facility] Medical History Migraine headache Vocal cord granuloma Surgical History History of bilateral cataract extraction H/O section Hx of tonsillectomy Family History Mother No problems noted. Father HTN (hypertension) Heart attack Hx of CABG, Onset Age: 65 Other Mental health disorder Substance use disorder Social History Housing: House Alcohol intake: former Year quit: 2022 Patient Tobacco Use Status: Never used Tobacco e-Cigarette/Vaping Use: Never Used Second Hand Smoke Exposure: No service: No Current occupational status: employed Current occupation: Peer professional Cognitive needs: No Hearing needs: No Vision needs: Yes (Glasses) Review of Systems Const All systems reviewed & are unremarkable except as noted in HPI and below Denies weakness ENT Denies dizziness Card Denies chest pain, Denies chest pain with activity, Denies syncope, Denies rapid heart rate, Denies pedal edema, Denies edema, Denies leg edema, Denies lightheadedness, Denies palpitations, Denies dyspnea, Denies dyspnea on exertion and Denies orthopnea Resp Denies cough, Denies dyspnea and Denies dyspnea on exertion GI Denies hematochezia and Denies change in stool character Musc Denies abnormal gait, Denies muscle cramps, Denies muscle weakness, Denies numbness, Denies radiating pain into limb and Denies tingling Neuro Denies abnormal gait, Denies dizziness, Denies syncope, Denies numbness, Denies tingling and Denies weakness Endo Denies palpitations Physical Exam Vital Signs: Last Vital Signs Pulse 89 11/14/23 15:17 BP 120/78 11/14/23 15:17 Pulse Ox 98 11/14/23 15:17 Oxygen Delivery Method Room Air 11/14/23 15:17 BMI result Body Mass Index 35.5 Const General: cooperative, healthy appearing, comfortable and no acute distress Orientation/consciousness: patient oriented x3 Neck Neck: Yes normal visual inspection and Yes no JVD Resp Effort & Inspection: normal respiratory effort Auscultation: clear to auscultation bilaterally, no crackles, no rales, no rhonchi and no wheezes Cardio Jugular venous distension: no JVD Rate: regular rate Rhythm: regular rhythm Heart sounds: S1 normal heart sound present, S2 normal heart sound present, no murmurs and no rubs Neuro General: patient oriented x3 Extrem General: Yes normal to inspection, No no pedal edema and No calf tenderness Psych Appearance: grossly normal Mental Status: mental status grossly normal Speech and movement: Normal speech and movement present Assessment & Plan Assessment & Plan (1) SVT (supraventricular tachycardia): Code(s): I47.1 - Supraventricular tachycardia Category: Medical Plan: History of SVT requiring adenosine in the past. On last visit she reported recurrent heart palpitations. A Holter monitor was done on 08/05/2023 for 3 days showing sinus rhythm with average heart rate 84, heart rate range 60 to 120, rare SVE. Today she reports no concerning heart palpitations since last visit. She continues on metoprolol XL 75 mg daily. Reviewed vagal maneuvers, ED care for sustained rapid heart palpitations. Cardiology follow-up in 1 year, sooner if needed (2) Precordial chest pain: Code(s): R07.2 - Precordial pain Category: Medical Plan: On last visit she did report some chest discomfort occurring randomly and at times with activity. She underwent an exercise nuclear stress test on 09/11/2023, exercise 7 minutes with report of chest tightness and mild shortness of breath. EKGs without ischemia at peak exercise however ST abnormality noted in recovery, normal myocardial perfusion imaging. She then underwent a CTA of the coronary arteries on 11/05/2023 showing no hemodynamically significant coronary artery plaque, calcium score 0. Test results reviewed with her in detail. She has no longer having chest discomfort. Signs and symptoms of true angina reviewed with her. Plan Time spent on chart review, documentation, interview and assessment Coding Level of Care Code Est Pt Level 3 (24039) Diagnoses SVT (supraventricular tachycardia) I47.1 Precordial chest pain R07.2 Time Spent (min) 24
== END 2023-11-14 15:56 | disposition home or self-care (01) ==
PROVIDERS: PCP Internal Medicine; Visit Provider Nurse Practitioner Family
DX: I47.10 Supraventricular tachycardia, unspecified (principal); R07.2 Precordial pain
CPT/HCPCS: 99213

== ENCOUNTER → 2023-11-14 15:12 | Outpatient (BNVA) | payer OTHER, SELFPAY | PROVIDERS: PCP Internal Medicine; Visit Provider Nurse Practitioner Family ==

== ENCOUNTER 2024-05-19 11:32 | Outpatient (AMB) | payer OTHER, SELFPAY ==
[2024-05-19 11:39] VITALS: BP 120/72; PULSE 75; O2SAT 98; BMI 35.2
--- NOTE | 2024-05-19 11:39 | MHC.PC.OV ---
Vital Signs 05/19/24 11:39 Height 5 ft 2 in Weight 192 lb 4 oz BMI 35.2 BP 120/72 Blood Pressure Location Lt brachial Position Sitting Pulse 75 Pulse Source Pulse Oximeter Pulse Oximetry (%) 98 Oxygen Delivery Method Room Air Intake Visit Reasons: Hip Pain Intake Note: Patient is here to follow up on Bilateral Hip pain, right side worse. Pt decline flu shot today. Power Generating Plant Operator Required: No Farm Or Ranch Animal Caretaker: Not Required per policy Accompanied by: Self / Same As Patient Allergies No Known Allergies [No Known Allergies*] Allergy (Verified 05/19/24 11:39) Medication List - Last Reconciled 05/19/24 by Shar Walker MD aripiprazole 2 mg PO DAILY ascorbate calcium (vitamin C) 500 mg PO DAILY buspirone 20 mg PO BID buspirone 5 mg PO BID clonazepam 1 mg PO BID PRN eletriptan 40 mg PO .PRN lamotrigine 100 mg PO DAILY metoprolol succinate ER 50 mg PO DAILY metoprolol succinate ER 25 mg PO DAILY multivitamin (Daily Multi-Vitamin tablet) 1 tab PO DAILY vilazodone 20 mg PO QAM Tobacco use date assessed: 05/19/24 Dental Screening Dental Screen Date: 08/21/23 HPI Hip Pain HPI Details bilateral hip pain for a month PFSH Medical History Migraine headache Vocal cord granuloma Surgical History History of bilateral cataract extraction H/O section Hx of tonsillectomy Family History Mother No problems noted. Father HTN (hypertension) Heart attack Hx of CABG, Onset Age: 65 Other Mental health disorder Substance use disorder Social History Housing: House Alcohol intake: former Year quit: 2022 Patient Tobacco Use Status: Never used Tobacco e-Cigarette/Vaping Use: Never Used Second Hand Smoke Exposure: No service: No Current occupational status: employed Current occupation: Peer professional Cognitive needs: No Hearing needs: No Vision needs: Yes (Glasses) Questionnaire Thrive Questionnaire Date Thrive assessed: 01/31/24 Are you currently unemployed and looking for a job?: No MINI-7 AMB Questionnaire MINI-7 Date MINI - 7 assessed: 08/21/23 Source: Developed by Drs. Quentin Garner, Johana Anaya, Scott Scott and colleagues, with an educational latisha from [employer]. Review of Systems Const Denies chills, Denies headache(s) and Denies weight loss ENT Denies headache(s) Card Denies chest pain, Denies syncope, Denies irregular heart rhythm and Denies dyspnea Resp Denies chest congestion, Denies cough and Denies dyspnea GI Denies abdominal pain, Denies change in stool character, Denies nausea and Denies vomiting Musc Denies deformity and Denies joint swelling Neuro Denies syncope and Denies headache(s) Physical exam (Primary Care) Vital Signs: Last Vital Signs Pulse 75 05/19/24 11:39 BP 120/72 05/19/24 11:39 Pulse Ox 98 05/19/24 11:39 Oxygen Delivery Method Room Air 05/19/24 11:39 BMI result Body Mass Index 35.2 Tobacco/Smoking Status: Tobacco use Status Tobacco use date assessed 05/19/24 05/19/24 11:57 Patient Tobacco Use Status Never used Tobacco 05/19/24 11:57 e-Cigarette/Vaping Use Never Used 05/19/24 11:57 Thrive Assessment: Date of Thrive Assessment Date Thrive assessed 08/21/23 05/19/24 11:57 Const General: cooperative, comfortable, no acute distress and alert Neck Neck: Yes no lymphadenopathy Thyroid: Thyroid normal Resp Effort & Inspection: normal respiratory effort Auscultation: clear to auscultation bilaterally Percussion: percussion normal Cardio Jugular venous distension: no JVD Palpation: normal PMI Rate: regular rate Rhythm: regular rhythm Heart sounds: S1 normal heart sound present and S2 normal heart sound present GI Inspection: Yes normal to inspection Palpation (GI): No hepatosplenomegaly present Skin General skin exam: no rashes or lesions noted Extrem General: Yes no clubbing, cyanosis or edema Coding Level of Care Code Est Pt Level 3 (13015) Diagnoses Hip pain M25.559 Assessment & Plan Assessment & Plan (1) Hip pain: Code(s): M25.559 - Pain in unspecified hip Plan: xr ordered Orders: Orders XR hip LT min 2V Today M25.559 - Pain in unspecified hip XR hip RT min 2V Today M25.559 - Pain in unspecified hip XR lumbar spine 2-3V Today M54.9 - Dorsalgia, unspecified
== END 2024-05-19 12:14 | disposition home or self-care (01) ==
LOC: HO.HMCH 11:32
PROVIDERS: PCP Internal Medicine; Visit Provider Internal Medicine
DX: M25.559 Pain in unspecified hip (principal)

== ENCOUNTER 2024-05-19 11:32 | Outpatient (REF) | payer OTHER, SELFPAY ==
--- NOTE | ~2024-05-19 | XR_ITS ---
EXAMINATION: XR HIP, LEFT CLINICAL INFORMATION: Pain. COMPARISON: None available. TECHNIQUE: Two views of the left hip. FINDINGS: No acute cortical disruption or malalignment. No lytic or blastic lesions. XR/XR hip LT min 2V IMPRESSION: No acute fracture or dislocation, left hip.. Electronically signed by: Jordan Hickman MD 06/03/2024 01:28 PM EST
--- NOTE | ~2024-05-19 | XR_ITS ---
EXAMINATION: XR LUMBOSACRAL SPINE CLINICAL INFORMATION: Dorsalgia. COMPARISON: None available. TECHNIQUE: Three views of the lumbosacral spine. FINDINGS: Facet joint hypertrophy at L4-5 and L5-S1. Rudimentary ribs at T12. Grade 1 anterolisthesis L4-5. No lytic or blastic lesions. 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 Electronically signed by: Jordan Hickman MD 06/03/2024 01:31 PM EMBER
--- NOTE | ~2024-05-19 | XR_ITS ---
EXAMINATION: XR HIP, RIGHT CLINICAL INFORMATION: Pain COMPARISON: None available. TECHNIQUE: Two views of the right hip. FINDINGS: No acute cortical disruption or malalignment. No lytic or blastic lesions. No subcutaneous emphysema. XR/XR hip RT min 2V IMPRESSION: No acute fracture or dislocation, right hip. Electronically signed by: Jordan Hickman MD 06/03/2024 01:29 PM EST
== END 2024-05-19 11:33 | disposition home or self-care (01) ==
LOC: HO.XRAY 11:32
PROVIDERS: PCP Internal Medicine; Visit Provider Internal Medicine
DX: M25.559 Pain in unspecified hip (principal); M54.9 Dorsalgia, unspecified
CPT/HCPCS: 72100; 73502

== ENCOUNTER → 2024-05-19 12:31 | Outpatient (BNV) | payer OTHER, SELFPAY | PROVIDERS: PCP Internal Medicine; Visit Provider Radiology Diagnostic Radiology | DX: M25.551 Pain in right hip (principal); M25.552 Pain in left hip; M54.9 Dorsalgia, unspecified | CPT/HCPCS: 72100; 73502 ==

== ENCOUNTER → 2024-08-25 14:16 | Outpatient (BNVA) | payer OTHER, SELFPAY | PROVIDERS: PCP Internal Medicine; Visit Provider Internal Medicine | DX: Z00.00 Encounter for general adult medical examination without abnormal findings (principal); F33.2 Major depressive disorder, recurrent severe without psychotic features | CPT/HCPCS: 96127 ==

== ENCOUNTER 2024-09-08 06:10 | Outpatient (REF) | payer OTHER, SELFPAY ==
--- OUTSIDE RECORDS SUMMARY | 2024-09-08 06:13 | XMS_ITS | Clinical Summary ---
Author Organization [facility] Address [address] [place] [address] Care Team Providers Care Diamond Assorter Name Role Phone Shar Walker MD Primary Care Provider [phone] Allergies Active Allergy Reactions Criticality Noted Date Comments Erythromycin Unknown/Patient and Family Unable to Define Medium 11/04/2023 Medications Medication Sig Dispensed Refills Start Date End Date Status ARIPiprazole (ABILIFY) 5 MG tablet Take 1 tablet (5 mg total) by mouth daily. Active ascorbic acid (VITAMIN C) 500 MG tablet Take 1 tablet (500 mg total) by mouth daily. Active lamoTRIgine (LaMICtal) 100 MG tablet Take 1 tablet (100 mg total) by mouth daily. Active metoPROLOL SUCCINATE (TOPROL-XL) 50 MG 24 hr tablet Take 1 tablet (50 mg total) by mouth daily. Active vilazodone (VIIBRYD) 20 MG tablet Take 1 tablet (20 mg total) by mouth daily. Active Social History Tobacco Use Types Packs/Day Years Used Date Smoking Tobacco: Never Assessed Sex and Gender Information Value Date Recorded Sex Assigned at Unknown 09/18/2023 1:13 PM EST Gender Identity Female 09/18/2023 1:13 PM EST Sexual Orientation Heterosexual (straight) 09/18 1:13 PM EST Last Filed Vital Signs Vital Sign Reading Time Taken Comments Blood Pressure 138/66 11/05/2023 8:23 AM EDT Pulse 60 11/05/2023 8:23 AM EDT Temperature 36.1 ??C (97 ??F) 11/05/2023 8:23 AM EDT Respiratory Rate 16 11/05/2023 8:23 AM EDT Oxygen Saturation 99% 11/05/2023 8:23 AM EDT Inhaled Oxygen Concentration - - Weight 85.7 kg (189 lb) 11/05/2023 8:23 AM EDT Height 157.5 cm (5' 2 ) 11/05/2023 8:23 AM EDT Body Mass Index 34.57 11/05/2023 8:23 AM EDT Plan of Treatment Health Maintenance Due Date Last Done Comments Hepatitis C Virus Screening 1965 HIV Screening 01/16/1976 DTaP/Tdap/Td Vaccines (1 - Tdap) 1982 Pap Smear (Ages 21-65) 01/16/1984 Mammogram 2003 Colonoscopy 01/16/2008 Pneumococcal Vaccines 50+ (1 of 1 - PCV) 2013 Zoster (Shingles) Vaccine (1 of 2) 2013 Influenza Vaccine 02/20/2024 COVID-19 Vaccine (1 - 2023-2 5 season) 2024 RSV Vaccine 60 years and old er and Patients (1 - 1-dose 75+ series) 2038 Hepatitis B Vaccines Aged Out No long er eligible based on patient's age to complete this topic Pneumococcal Vaccine: Pediat julián (0-5 Years) and At-Risk Patients (6 to 49 Years) Aged Out No longer eligible b ased on patient's age to complete this topic Care Teams Diamond Assorter Relationship Specialty Start Date End Date Shar Walker MD [address] [place], [place] [id number] PCP - General 09/18/23
[2024-09-08 06:19] LABS: MANUAL DIFF FLAG NO
[2024-09-08 07:46] LABS: Basophils Absolute Auto 0.1 X10*3/uL (0.0-0.2); Basophils Percent Auto 0.7 % (0-2); Eosinophils Absolute Auto 0.3 X10*3/uL (0.0-0.4); Eosinophils Percent Auto 3.6 % (0-4); Hematocrit 39.8 % (37.0-47.0); Hemoglobin 13.2 g/dl (12.0-16.0); Imm Gran Abs Auto 0.02 X10*3/uL (0.00-0.03); Imm Gran Pct Auto 0.2 % (0.0-0.4); Lymphocytes Percent Auto 34.3 % (20-40); Mean Corpuscular HGB Conc 33.2 g/dl (31.0-35.0); Mean Corpuscular Hemoglobin 29.7 pg (27.0-33.0); Mean Corpuscular Volume 89.6 fL (80.0-98.0); Mean Platelet Volume 10.1 fL (9.4-12.3); Monocytes Absolute Auto 0.8 X10*3/uL (0.1-1.2); Monocytes Percent Auto 8.8 % (2-11); Neutrophils Absolute Auto 4.6 x10*3/uL (2.0-8.3); Neutrophils Percent Auto 52.4 % (45-73); Platelet Count 304 X10*3/uL (160-400); Red Blood Count 4.44 X10*6/uL (4.20-5.50); White Blood Count 8.8 X10*3/uL (4.8-10.8)
[2024-09-08 08:35] LABS: Alanine Aminotransferase 19 U/L (0-31); Alkaline Phosphatase 71 U/L (39-117); Anion Gap 14 (12-20); Aspartate Amino Transferase 20 U/L (5-31); Bilirubin Total 0.5 mg/dL (0.0-1.0); Blood Urea Nitrogen 17 mg/dL (9-16); Calcium 9.2 mg/dL (8.4-10.2); Carbon Dioxide 24 mmol/L (22-29); Chloride 105 mmol/L (96-108); Cholesterol 165 mg/dL (<200); Estimated Glomerular Filt Rate > 60; Glucose Fasting 86 mg/dL (60-99); HDL Cholesterol 48 mg/dL (>40); LDL Cholesterol Calculated 96 mg/dL (<100); Sodium 139 mmol/L (135-145); Total Protein 7.6 g/dL (6.5-8.0); Triglycerides 109 mg/dL (<150)
[2024-09-08 08:50] LABS: Thyroid Stimulating Hormone 2.71 uIU/mL (0.32-4.0)
== END 2024-09-08 06:11 | disposition home or self-care (01) ==
LOC: HO.LAB 06:10
PROVIDERS: PCP Internal Medicine; Referring Provider Nurse Practitioner Psychiatric/Mental Health; Visit Provider Internal Medicine
DX: Z13.220 Encounter for screening for lipoid disorders (principal); Z13.29 Encounter for screening for other suspected endocrine disorder; Z13.0 Encounter for screening for diseases of the blood and blood-forming organs and certain disorders involving the immune mechanism; Z13.9 Encounter for screening, unspecified
CPT/HCPCS: 36415; 80053; 80061; 84443; 85025

== ENCOUNTER 2024-09-14 15:08 | Outpatient (REF) | payer OTHER, SELFPAY ==
--- OUTSIDE RECORDS SUMMARY | 2024-09-14 17:26 | XMS_ITS | Clinical Summary ---
Author Organization [facility] Address [address] [place] [address] Care Team Providers Care Hvac Service Tech Name Role Phone Shar Walker MD Primary Care Provider [phone] Allergies Active Allergy Reactions Criticality Noted Date [...] age to complete this topic Care Teams Hvac Service Tech Relationship Specialty Start Date End Date Shar Walker MD [address] [place], [place] [id number] PCP - General 09/18/23
== END 2024-09-14 15:09 | disposition home or self-care (01) ==
LOC: HO.MAMMO 15:08
PROVIDERS: PCP Internal Medicine; Visit Provider Internal Medicine
DX: Z12.31 Encounter for screening mammogram for malignant neoplasm of breast (principal)
CPT/HCPCS: 77063; 77067

== ENCOUNTER → 2024-09-14 15:30 | Outpatient (BNV) | payer OTHER, SELFPAY | PROVIDERS: PCP Internal Medicine; Visit Provider Internal Medicine | DX: Z12.31 Encounter for screening mammogram for malignant neoplasm of breast (principal) | CPT/HCPCS: 77063; 77067 ==

== ENCOUNTER 2024-11-19 15:01 | Outpatient (AMB) | payer OTHER, SELFPAY ==
--- NOTE | 2024-11-19 15:09 | MHC.OFFVIS ---
Vital Signs 11/19/24 15:11 Height 5 ft Weight 198 lb 6.656 oz BMI 38.7 BP 120/72 Blood Pressure Location Lt brachial Position Sitting Pulse 73 Pulse Source Monitor Intake Visit Reasons: 1 year fu Manager Stone Required: No Accompanied by: Self / Same As Patient Allergies No Known Allergies [No Known Allergies*] Allergy (Verified 08/25/24 14:32) Medication List - Last Reconciled 11/19/24 by Rah Gaitan MD aripiprazole 2 mg PO DAILY ascorbate calcium (vitamin C) 500 mg PO DAILY buspirone 20 mg PO BID buspirone 5 mg PO BID clonazepam 1 mg PO BID PRN eletriptan 40 mg PO .PRN lamotrigine 100 mg PO DAILY metoprolol succinate ER 50 mg PO DAILY metoprolol succinate ER 25 mg PO DAILY multivitamin (Daily Multi-Vitamin tablet) 1 tab PO DAILY vilazodone 20 mg PO QAM HPI Comments Details: Jose returns for follow-up. Previously seen in consultation regarding SVT. She had an episode of palpitations that started after having some coffee. Subsequently, seen in the ER and received IV adenosine. Then converted to sinus rhythm and then discharged home. Then another visit with palpitations. Came to the ER and noted to have rather sinus tachycardia. Then it seems that beta-aneta dose has been increased. She also has lot of anxiety at baseline and not clear how much that plays a role. Overall, she generally feels good. Sometimes she still feels palpitations but not clear if it is rather just anxiety. Less likely NSVT or any other cardiac arrhythmia. Otherwise, she has gained a lot of weight over the last few years. She feels she is very deconditioned. [facility] Medical History Migraine headache Vocal cord granuloma Surgical History History of bilateral cataract extraction H/O section Hx of tonsillectomy Family History Mother No problems noted. Father HTN (hypertension) Heart attack Hx of CABG, Onset Age: 65 Other Mental health disorder Substance use disorder Social History Housing: House Alcohol intake: former Year quit: 2022 Patient Tobacco Use Status: Never used Tobacco e-Cigarette/Vaping Use: Never Used Second Hand Smoke Exposure: No service: No Current occupational status: employed Current occupation: Peer professional Cognitive needs: No Hearing needs: No Vision needs: Yes (Glasses) Review of Systems Const Denies chills, Denies fatigue, Denies fever(s), Denies frequent falls, Denies weakness, Denies weight gain and Denies weight loss ENT Denies dizziness Card Denies chest pain, Denies leg edema, Denies lightheadedness, Denies palpitations, Denies dyspnea and Denies dyspnea on exertion Resp Denies cough, Denies dyspnea and Denies dyspnea on exertion GI Denies hematochezia Musc Denies abnormal gait, Denies muscle weakness, Denies numbness, Denies radiating pain into limb and Denies tingling Neuro Denies abnormal gait, Denies dizziness, Denies frequent falls, Denies numbness, Denies tingling and Denies weakness Endo Denies fatigue and Denies palpitations Physical Exam Vital Signs: Last Vital Signs Pulse 73 11/19/24 15:11 BP 120/72 11/19/24 15:11 BMI result Body Mass Index 38.7 Const General: comfortable and no acute distress Orientation/consciousness: patient oriented x3 HEENT Other: Unremarkable Head: Yes normal to inspection Neck Neck: Yes normal visual inspection Chest Chest palpation & inspection: normal inspection of the chest Resp Auscultation: clear to auscultation bilaterally Cardio Palpation: normal PMI Heart sounds: S1 normal heart sound present, S2 normal heart sound present, no gallops, no murmurs and no rubs GI Palpation (GI): Soft to palpation Back/Spine/Pelvis Other: unremarkable Skin General skin exam: no rashes or lesions noted Neuro General: patient oriented x3 Extrem General: Yes normal to inspection Psych Mental Status: mental status grossly normal Office Procedures EKG Details: EKG with underlying sinus rhythm at 73/Min; sinus arrhythmias; nonspecific ST-T changes in the inferior leads as well as anterolateral leads. These have been noted before. 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 In the repeat EKG, sinus rhythm at 96/Min; normal AK and corrected QT. Echocardiogram with LVEF of 60-65%. Normal peak global longitudinal strain. Mild aortic regurgitation. Otherwise unremarkable. In another EKG from the ER, sinus tachycardia at 110/min. Anxiety also may play a role in this. In the coronary CTA from 2023, no hemodynamically significant coronary disease; calcium score of 0. Overall, history of SVT but mostly stable. The slight palpitations she gets could be just sinus tachycardia versus anxiety. Less likely true SVT. Continue beta-blockers. Otherwise, preserved LVEF in the echocardiogram and no evidence of coronary disease on CTA. Hence reassurance only. With regard to her weight, she states that it is a lot because of anxiety. Advised to discuss that with her own psychiatrist. Otherwise, we will follow her up in one year. She will call us with any interim concerns. Discussion Notes During the consultation, we discussed the patient's experience of palpitations and dyspnea, symptoms possibly linked to anxiety and weight gain. In managing her symptoms, we talked about maintaining her current regimen of Metoprolol to monitor heart rate patterns. Should the frequency of tachycardia episodes increase, we will reconsider the necessity of a Holter monitor. I recommended ongoing psychological support to address her anxiety, impacting both her mental health and weight gain. We primarily focused on non-surgical management due to the patient's preference against surgical interventions. Patient was informed and verbally consented to the use of an ambient scribe for clinic note documentation during this visit. Total time spent including review of data, counseling, documentation, coordination of care-31 minutes. Medications: Refilled metoprolol succinate ER 50 mg PO DAILY 90 tabs 3RF I47.1 - Supraventricular tachycardia metoprolol succinate ER 25 mg PO DAILY 90 tabs 3RF Patient Instructions: - Continue taking Metoprolol 75 mg daily as prescribed. - Monitor the frequency and duration of palpitations; report any increase or sustained episodes. - Follow up with your psychiatrist for anxiety management and potential weight control interventions. - Maintain a healthy diet and consider seeking advice from a oxidized finish plater for weight management. - If symptoms worsen or become more regular, contact the office for a possible Holter monitor assessment. - Schedule a follow-up appointment in one year, or sooner if needed. Coding Level of Care Code Est Pt Level 4 (19489) Diagnoses SVT (supraventricular tachycardia) I47.1 Obesity E66.9 CPT Codes EKG - CPT: 03532-[id number], Complete ([id number])
[2024-11-19 15:11] VITALS: BP 120/72; PULSE 73; BMI 38.7
--- OUTSIDE RECORDS SUMMARY | 2024-11-19 16:58 | XMS_ITS | Clinical Summary ---
Author Organization [facility] Address [address] [place] [address] Care Team Providers Care Real Estate Rental Agent Name Role Phone Shar Walker MD Primary Care Provider [phone] Allergies Active Allergy Reactions Criticality Noted Date Comments Erythromycin Unknown/Patient and Family Unable to Define Medium 11/04/2023 Medications ARIPiprazole (ABILIFY) 5 MG tablet Take 1 [...] Years Used Date Smoking Tobacco: Never Assessed Comments Unknown Sex and Gender Information Value Date Recorded Sex Assigned at Unknown 09/18/2023 1:13 PM EST Legal Sex Female 2:39 PM EST Gender Identity Female 09/18/2023 1:13 [...] on patient's age to complete this topic Insurance [facility] Care Teams Real Estate Rental Agent Relationship Specialty Start Date End Date Shar Walker MD [address] [place] [address] PCP - General 09/18/23
== END 2024-11-19 15:30 | disposition home or self-care (01) ==
LOC: HO.HCS 15:02
PROVIDERS: PCP Internal Medicine; Visit Provider Internal Medicine
DX: I47.10 Supraventricular tachycardia, unspecified (principal); E66.9 Obesity, unspecified
CPT/HCPCS: 93010; 99214

== ENCOUNTER → 2024-11-19 15:01 | Outpatient (BNVA) | payer OTHER, SELFPAY | PROVIDERS: PCP Internal Medicine; Visit Provider Internal Medicine | DX: I47.10 Supraventricular tachycardia, unspecified (principal); E66.9 Obesity, unspecified; R00.2 Palpitations; Z68.38 Body mass index [BMI] 38.0-38.9, adult | CPT/HCPCS: 93005 ==